=== PATIENT | female | born 1955 | race Caucasian/White ===

== ENCOUNTER 2017-04-21 07:12 | Inpatient (IN) ==
[2017-04-21] MEDS ORDERED: IPRATROPIUM/ALBUTEROL 2.5mg-0.5mg/3ml NEB AEROSOL ONE ×2 (07:30→09:00)
--- NOTE | 2017-04-21 07:40 | Emergency Department Report ---
General Adult HPI - General Chief complaint: Upper Respiratory Infection Stated complaint: Pneumonia Time Seen by Provider: 04/21/17 07:24 Source: patient Mode of arrival: ambulatory Limitations: no limitations - History of Present Illness HPI narrative: 62-year-old female presents the emergency department with a chief complaint of productive cough of yellow phlegm. Patient has a history of COPD has been non- compliant with her medication regimen for quite some time. Patient also notes a dull generalized chest discomfort with cough only. No radiation. Pain is moderate when present. Patient states that her symptoms have been slowly exacerbating over the past several days. She does not note any exacerbating or remitting factors other than cough. Patient states this is similar to when she has had pneumonia in the past. She was at home when her symptoms began. Symptoms are gradual progression in nature since onset. No other complaints or associated symptoms. - Related Data Home Medications Medication Instructions Recorded Confirmed Dicyclomine HCl 20 mg PO TID #0 04/26/14 04/21/17 Promethazine HCl 25 mg PO TID PRN #0 04/26/14 04/21/17 Nitroglycerin 1 tab SL Q5H PRN #0 07/04/14 04/21/17 Lisinopril 10 mg PO DAILY #0 04/02/15 04/21/17 Omeprazole 40 mg PO DAILY #0 09/18/15 04/21/17 Tiotropium [place] [Spiriva 1 puff INH DAILY #0 09/18/15 04/21/17 Respimat] Verapamil HCl [Verapamil ER] 180 mg PO DAILY #0 09/18/15 04/21/17 Cyanocobalamin (Vitamin B-12) 2,500 mcg PO DAILY 04/21/17 04/21/17 [Vitamin B12] Isosorbide Mononitrate ER [Imdur] 30 mg PO DAILY 04/21/17 04/21/17 Levothyroxine Tab [Synthroid] 100 mcg PO DAILY 04/21/17 04/21/17 Nitroglycerin Patch [Nitro-Dur 0.2 1 patch TD DAILY 04/21/17 04/21/17 mg/Hr] Previous Rx's Medication Instructions Recorded Albuterol Neb (0.083%) [Proventil 2.5 mg AEROSOL QID #56 vial 04/22/17 Neb (0.083%)] Benzonatate [Tessalon Perles] 200 mg PO TID #20 cap 04/22/17 Guaifenesin LA [Mucinex LA] 600 mg PO BID PRN #20 04/22/17 Hydrocodone/APAP 7.5/325 [[place] 1 tab PO Q4H PRN #20 04/22/17 7.5/325] Levofloxacin [Levaquin] 750 mg PO ACB #5 04/22/17 PredniSONE [Deltasone] 40 mg PO WB #10 04/22/17 Allergies Allergy/AdvReac Type Severity Reaction Status Date / Time azithromycin Allergy Unknown RASH Verified 04/21/17 09:42 Iodinated Contrast Media - Allergy Unknown Verified 04/21/17 09:42 Oral and Penicillins Allergy Unknown ANAPHYLACTIC Verified 04/21/17 09:42 SHOCK ketorolac AdvReac Unknown VOMITING Verified 04/21/17 09:42 Review of Systems Constitutional: Denies: fever, weakness Eyes: Denies: eye pain, vision change ENT: Denies: ear pain, throat pain, dental pain Cardiovascular: Denies: chest pain, dyspnea on exertion Respiratory: Reports: cough, dyspnea, wheezes. Denies: hemoptysis Gastrointestinal: Reports: abdominal pain, nausea, vomiting, diarrhea Genitourinary: Denies: urgency, dysuria Musculoskeletal: Denies: back pain, arthralgia Integumentary: Denies: erythema, rash Neurological: Denies: headache, numbness Psychiatric: Denies: anxiety, depression Endocrine: Denies: fatigue, heat or cold intolerance Hematological/Lymphatic: Denies: easy bleeding, easy bruising Allergic/Immunologic: Denies: facial swelling, urticaria PFSH Patient Stated Medical History Migraine Yes Syncope Yes Angina Yes Cardiac Arrhythmia Yes Hypotension Yes Asthma Yes Bronchitis Yes Chronic Obstructive Pulmonary Yes Disease (COPD) Pneumonia Yes Gastroesophageal Reflux Yes Disease Shingles Yes: LEFT CHEST Depression Yes Ovarian Cysts Yes Post Menopausal Yes Surgical History: Cardiac catheterization, hysterectomy, carpal tunnel release, facial surgery, tonsillectomy, lumpectomy, endometriosis surgery 3. Family History: Cancer and coronary artery disease - Social History Smoking status: Current every day smoker Packs per day: 1 Substance use type: former substance user, crack/cocaine Alcohol intake frequency: does not drink Physical Exam - Limitations Limitations: no limitations - General General appearance: alert, in no apparent distress - Normal Exams: Head:: Normocephalic without trauma Eyes:: Pupils are PERRLA w/ EOMI ENMT:: No facial trauma, nasal exudates, pharyngeal erythema, or exudates are noted Dental: No fractured, loose, or missing teeth noted Neck:: Full range of motion, without adenopathy, JVD, bruits or thyromegaly Chest/Respirations:: with good airflow, and symmetry bilaterally (bilateral end expiratory wheezes.) Cardiovascular:: Regular rate and rhythm, without murmur or gallop, Pulses 2+ all extremities, capillary refill, <2 seconds all extremities Abdomen:: Bowel sounds positive, soft, non-tender, non-distended, no hepatosplenomegaly, masses or bruits noted Lymphatic:: No lymphadenopathy, or lymphedema noted Musculoskeletal:: No tenderness, or deformity noted, good range of motion, all extremities Integumentary:: No rashes, hives, or bruising noted, hair and nails, without abnormality Neurological:: Patient is alert, and oriented, cranial nerves, motor/sensory/ cerebellar, exams w/o gross deficits, to observation Psychiatric:: Patient exhibits Course Vital Signs Temperature 98.1 F 04/21/17 07:15 Pulse Rate 92 04/21/17 07:15 Respiratory Rate 32 H 04/21/17 07:15 Blood Pressure 125/81 04/21/17 07:15 Pulse Oximetry 93 04/21/17 07:15 Temperature 97.5 F 04/22/17 15:43 Pulse Rate 84 04/22/17 15:43 Respiratory Rate 24 04/22/17 16:43 Blood Pressure 106/68 04/22/17 15:43 Pulse Oximetry 96 04/22/17 16:43 Medical Decision Making - [facility] Narrative Medical decision making narrative: Patient's blood pressure of 88/51 is not a correct reading. Patient was moving during the reading with a coughing fit. All other pressures were > 90 systolic. Patient does not qualify for 30 mL/kg of normal saline hydration as this blood pressure was an erroneous value and should not be interpreted as a correct value. She was not hypotensive and did not have a lactic acid greater than 4. Patient does not meet criteria for 30 mL/kg of normal saline hydration. Patient is given gentle IV hydration. She is given DuoNeb nebulized treatments in the emergency department with improvement of symptoms. She is given Solu-medrol 125 mg IV 1. She is started on Levaquin 750 mg IV times one at 0950 as sepsis was considered at this time. Patient is admitted to the service of the hospitalist in improved condition. Patient is in agreement with the current plan of management. Accepting physician is Dr. Graham who is in agreement with the current plan of management as well. No further orders. Sepsis was considered at 0950 and antibiotic therapy was ordered at this time. - Differential Diagnosis COPD exacerbation, pneumonia, viral syndrome, acute bronchitis - Lab Data Result diagrams: 04/22/17 04:27 04/22/17 04:27 Lab Results 04/21/17 04/21/17 04/21/17 Range/Units 07:45 07:45 08:24 WBC 12.9 H (4.5-11.0) T/MM3 RBC 4.15 (4.00-5.20) M/MM3 Hgb 12.7 (12-16) GM/DL Hct 38.9 (36-46) % MCV 93.7 (80-100) UM3 MCH 30.6 (26-34) UUG MCHC 32.6 (31-37) GM/DL RDW Std Deviation 47.1 (36.9-50.2) FL Plt Count 239 (130-400) T/MM3 MPV 10.3 (9.4-12.4) UM3 Immature Gran % (Auto) 0.2 (0.0-0.5) % Neut % (Auto) 48.5 (33-66) % Lymph % (Auto) 44.8 (23-45) % [place] % (Auto) 5.5 (0-9.0) % Eos % (Auto) 0.5 (0-4) % Baso % (Auto) 0.5 (0-2) % Neut # 6.3 (1.8-7.7) T/MM3 Lymph # 5.8 H (1-4.8) T/MM3 [place] # 0.7 (0-0.8) T/MM3 Eos # 0.1 (0-0.5) T/MM3 Baso # 0.1 (0-0.2) T/MM3 Abs Immat Gran (auto) 0.02 (0.00-0.03) T/MM3 Turbidity 20 (0-20) Sodium 140 (134-144) MEQ/L Potassium 4.2 (3.6-5) MEQ/L Chloride 106 (98-107) MEQ/L Carbon Dioxide 24 (22-30) MEQ/L Anion Gap 10 (5-15) MEQ/L BUN 11.0 (7-17) MG/DL Creatinine 0.7 (0.7-1.2) MG/DL GFR Calculation 85 BUN/Creatinine Ratio 16 (6-26) RATIO Glucose 126 H (65-110) MG/DL Calculated Osmolality 270 (261-280) MOSM/KG Calcium 8.9 (8.4-10.2) MG/DL Total Bilirubin 0.50 (0.20-1.30) MG/DL Icterus Index 2 (0-7) AST 12 L (14-36) U/L ALT 31 (9-52) U/L Alkaline Phosphatase 83 (38-126) U/L Troponin I < 0.012 (0-0.12) ng/ml Total Protein 6.9 (6.3-8.2) G/DL Albumin 3.6 (3.5-5.0) G/DL Globulin 3.3 (2.4-3.6) G/DL Albumin/Globulin Ratio 1.1 (1.1-2.2) RATIO Plasma Lactate 0.6 (0.6-2.2) MMOL/L Procalcitonin NG/ML Specimen Hemolysis 15 (0-25) 06/08/17 Range/Units 08:30 WBC (4.5-11.0) T/MM3 RBC (4.00-5.20) M/MM3 Hgb (12-16) GM/DL Hct (36-46) % MCV (80-100) UM3 MCH (26-34) UUG MCHC (31-37) GM/DL RDW Std Deviation (36.9-50.2) FL Plt Count (130-400) T/MM3 MPV (9.4-12.4) UM3 Immature Gran % (Auto) (0.0-0.5) % Neut % (Auto) (33-66) % Lymph % (Auto) (23-45) % [place] % (Auto) (0-9.0) % Eos % (Auto) (0-4) % Baso % (Auto) (0-2) % Neut # (1.8-7.7) T/MM3 Lymph # (1-4.8) T/MM3 [place] # (0-0.8) T/MM3 Eos # (0-0.5) T/MM3 Baso # (0-0.2) T/MM3 Abs Immat Gran (auto) (0.00-0.03) T/MM3 Turbidity (0-20) Sodium (134-144) MEQ/L Potassium (3.6-5) MEQ/L Chloride (98-107) MEQ/L Carbon Dioxide (22-30) MEQ/L Anion Gap (5-15) MEQ/L BUN (7-17) MG/DL Creatinine (0.7-1.2) MG/DL GFR Calculation BUN/Creatinine Ratio (6-26) RATIO Glucose (65-110) MG/DL Calculated Osmolality (261-280) MOSM/KG Calcium (8.4-10.2) MG/DL Total Bilirubin (0.20-1.30) MG/DL Icterus Index (0-7) AST (14-36) U/L ALT (9-52) U/L Alkaline Phosphatase (38-126) U/L Troponin I (0-0.12) ng/ml Total Protein (6.3-8.2) G/DL Albumin (3.5-5.0) G/DL Globulin (2.4-3.6) G/DL Albumin/Globulin Ratio (1.1-2.2) RATIO Plasma Lactate (0.6-2.2) MMOL/L Procalcitonin < 0.05 NG/ML Specimen Hemolysis (0-25) - Radiology Data CXR: LLL Infiltrate otherwise no acute processes. - EKG Data EKG #1 EKG results narrative: Sinus rhythm. T wave abnormality in V3-V6. No STEMI. EKG is similar to March. 79 bpm. Disposition Clinical Impression: Acute exacerbation of chronic obstructive airways disease Disposition: To [facility] Condition: Stable Time of Disposition: 09:50 (Admit. Dr. Graham.) - Seen By: physician
--- NOTE | 2017-04-21 09:12 | XRay Report ---
INDICATION: Cough PROCEDURE: CHEST 2-VIEWS UPRIGHT (PA & LAT) Encounter: Initial Comparison: April 05, 2015 Findings: Faint airspace opacity in the left lower lobe. The lungs are otherwise stable. Chronic increased basilar markings. There is no pleural effusion or pneumothorax. The heart size, pulmonary vascularity and mediastinal contours are unchanged. Calcified hilar granulomas. IMPRESSION: Subtle left posterior lower lobe infiltrate, some of which may be due to chronic scarring although an acute early pneumonia cannot be entirely excluded. Recommend clinical and laboratory correlation. .
[2017-04-21] MEDS ORDERED: METHYLPREDNISOLONE SOD SUCC 125mg/2ml INJECTION IVP ONE (09:49)
[2017-04-21] MEDS ORDERED: LEVOFLOXACIN PREMIX 750 MG/150 ML BAG IV ONE (09:50)
[2017-04-21] MEDS ORDERED: NS 1,000 ML IV ONE (09:50)
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
[2017-04-21] MEDS ORDERED: PROMETHAZINE 25 MG PO PRN (12:38)
[2017-04-21] MEDS ORDERED: NICOTINE 21 MG PATCH TD PRN (12:41)
[2017-04-21] MEDS: ACETAMINOPHEN 325 MG TABLET PO PRN (15:04)
[2017-04-21] MEDS: IPRATROPIUM/ALBUTEROL 2.5mg-0.5mg/3ml NEB IH SCH ×2 (15:21→20:52)
[2017-04-21] MEDS: GUAIFENESIN LA 600 MG TABLET PO PRN (16:38)
[2017-04-21] MEDS: ONDANSETRON 4 MG/2 ML INJECTION IVP PRN (16:38)
[2017-04-21] MEDS ORDERED: IPRATROPIUM/ALBUTEROL 2.5mg-0.5mg/3ml NEB IH PRN (17:20)
[2017-04-21] MEDS ORDERED: PredniSONE 20 MG TABLET PO ONE (17:20)
[2017-04-21] MEDS ORDERED: IBUPROFEN 600 MG TABLET PO PRN (17:35)
[2017-04-21] MEDS: DICYCLOMINE 20 MG PO SCH (18:29)
[2017-04-21] MEDS: CYCLOBENZAPRINE 10 MG TABLET PO PRN (18:29)
[2017-04-21] MEDS: HYDROCODONE/APAP 7.5 MG/325 MG TABLET PO PRN (20:28)
[2017-04-21] MEDS ORDERED: NITROGLYCERIN PATCH REMOVAL TD SCH (21:00)
[2017-04-21] MEDS ORDERED: FAMOTIDINE 40 MG TABLET PO PRN (22:25)
[2017-04-22] MEDS: HYDROCODONE/APAP 7.5 MG/325 MG TABLET PO PRN ×4 (01:23→15:50)
[2017-04-22] MEDS ORDERED: LEVOTHYROXINE 100 MCG PO SCH (06:30)
[2017-04-22] MEDS ORDERED: ISOSORBIDE MONONITRATE 30 MG PO SCH (06:30)
[2017-04-22] MEDS ORDERED: LEVOFLOXACIN 750 MG TABLET PO SCH (06:30)
[2017-04-22] MEDS ORDERED: OMEPRAZOLE 20 MG CAPSULE PO SCH (06:30)
[2017-04-22] MEDS ORDERED: FAMOTIDINE 40 MG TABLET PO ONE (07:15)
[2017-04-22] MEDS ORDERED: PredniSONE 20 MG TABLET PO SCH (08:00)
[2017-04-22] MEDS: IPRATROPIUM/ALBUTEROL 2.5mg-0.5mg/3ml NEB IH SCH ×2 (08:11→16:46)
[2017-04-22] MEDS ORDERED: FAMOTIDINE 40 MG TABLET PO PRN (08:11)
[2017-04-22] MEDS: CYCLOBENZAPRINE 10 MG TABLET PO PRN (08:20)
[2017-04-22] MEDS: DICYCLOMINE 20 MG PO SCH ×3 (08:21→17:48)
[2017-04-22] MEDS ORDERED: NITROGLYCERIN 0.2 MG/HR PATCH TD SCH (09:00)
[2017-04-22] MEDS ORDERED: HANDIHALER ORAL INH SCH (09:00)
[2017-04-22] MEDS ORDERED: CYANOCOBALAMIN 2500 MCG PO SCH (09:00)
[2017-04-22] MEDS ORDERED: LISINOPRIL 10 MG PO SCH (09:00)
[2017-04-22] MEDS ORDERED: TIOTROPIUM ORAL INH SCH (09:00)
[2017-04-22] MEDS ORDERED: VERAPAMIL 180 MG PO SCH (09:00)
[2017-04-22] MEDS ORDERED: NICOTINE PATCH REMOVAL TD SCH (09:00)
[2017-04-22] MEDS ORDERED: POLYETHYL GLYCOL 3350 17gm PACKET PO ONE (12:28)
[2017-04-22] MEDS: ACETAMINOPHEN 325 MG TABLET PO PRN (12:47)
[2017-04-22] MEDS: GUAIFENESIN LA 600 MG TABLET PO PRN (13:46)
[2017-04-22] MEDS: ONDANSETRON 4 MG/2 ML INJECTION IVP PRN (16:19)
--- NOTE | 2017-04-22 17:51 | Progress Note ---
Subjective: Sulema reports her breathing is about 50% better today and that she is less short of breath with activities and yesterday but she continues to cough repetitively with yellow-green sputum production. She was caught going outside to smoke earlier today. She describes nausea with retching when her Hep-Lock is flushed but has been able to eat. She is voiding well and denied fevers but believe she chilled overnight. She describes her hands feeling ice cold and changing colors at times. She continues to have significant pain with cough localizing pain to the left ribs today more than the right. She just complains of chronic back pain. Objective Vital signs: Temp Pulse Resp BP Pulse Ox 97.5 F 84 24 106/68 96 04/22/17 15:43 04/22/17 15:43 04/22/17 16:43 04/22/17 15:43 04/22/17 16:43 EXAM General-NAD, alert HEENT-conjugate gaze, oropharynx clear Lungs-respirations are nonlabored with diminished airflow, breath sounds are slightly coarse Cardiac-regular rhythm, decreased heart tones Abd-soft, nontender, bowel sounds present Ext-without edema Neuro-moving all extremities spontaneously Psych-push of speech, anxious - Height: 1.55 m Weight: 53.6 kg Body Mass Index: 22.3 - Constitutional Present: mild distress, thin Results - Labs CBC & Chem 7: 04/22/17 04:27 04/22/17 04:27 Labs: Respiratory viral panel positive for rhinovirus. Blood cultures 2 negative after 1 day. Assessment and Plan (1) CAP (community acquired pneumonia) Current visit: Yes Status: Acute (2) COPD exacerbation Current visit: Yes Status: Acute (3) Rhinovirus infection Current visit: Yes Status: Acute (4) Anterior chest wall pain Current visit: Yes Status: Acute (5) Tobacco abuse Current visit: Yes Status: Chronic (6) Sepsis Current visit: Yes Status: Acute (7) Chest pain, atypical Current visit: Yes Status: Acute (8) CAD (coronary artery disease) Current visit: Yes Status: Acute (9) Bipolar affective disorder Current visit: Yes Status: Acute (10) PTSD (post-traumatic stress disorder) Current visit: Yes Status: Acute (11) Anxiety and depression Current visit: Yes Status: Acute (12) Constipation by delayed colonic transit Current visit: Yes Status: Acute Assessment and Plan: Respiratory status improving , respiratory isolation initiated for rhinovirus. Continue Levaquin/prednisone for COPD exacerbation. Tessalon Perles initiated for cough control. Repeat chest x-ray in a.m. Sputum culture pending-suspect infiltrate viral in origin. Continue aggressive beta agonist therapy, patient reports need for nebulizer at home-case management advice. Patient complains of constipation-bowel regimen initiated. Tobacco cessation again counseled. Heating pad added for rib/chest wall pain in conjunction with currently available pain medications. Inpatient status due to acute respiratory failure. Nursing provide supplemental history, laboratory data reviewed, chest x-ray ordered. Sepsis Assessment - Evaluation Sepsis screening result: No Definite Risk - Focused Exam Vital Signs Temp Pulse Resp BP Pulse Ox 04/22/17 16:43 24 96 04/22/17 15:43 97.5 F 84 20 106/68 92 04/22/17 12:31 18 94 04/22/17 07:32 24 96 04/22/17 07:24 96.5 F L 68 18 134/85 97 Hospital Course Summary Disclaimer: The visit summary below is not to be considered part of the above Progress Note. Hospital Course: 04/21/17 12:53 Admit to observation status 1. Sepsis secondary to CAP (LLL) - SIRS = tachypnea and leukoctyosis + infection (pneumonia) - Levaquin - given IV in ED. Start PO in am. - Supportive care 2. COPD exacerbation - Solu-Medrol IV was given in ED. Start Prednisone 40 mg tomorrow am. - DuoNeb QID; continue home Spiriva. - Acute hypoxic respiratory failure - Oxygen to maintain sats - Acapella 3. Atypical chest pain - Right chest pain assoc. with cough, onset yesterday - Hx of CAD with stent - continue routine home meds - Assess EKG - Check troponin 4. Tobacco abuse - Pt is trying to cut back - Ask RT to provide cessation information 5. Depression/anxiety/PTSD/Bipolar disorder - Monitor for worsening in psychiatric conditions d/t steroids - Ativan PRN 6. Consult CM - needs to be established with new PCP 04/22/17 17:58 Respiratory status improving , respiratory isolation initiated for rhinovirus. Continue Levaquin/prednisone for COPD exacerbation. Repeat chest x-ray in a.m. Sputum culture pending-suspect infiltrate viral in origin. Continue aggressive beta agonist therapy, patient reports need for nebulizer at home-case management advice. Patient complains of constipation-bowel regimen initiated. Tobacco cessation again counseled. Heating pad added for rib/chest wall pain in conjunction with currently available pain medications. Inpatient status due to respiratory failure.
--- NOTE | 2017-04-22 18:51 | Discharge Summary ---
Discharge Plan - Med Rec/Dispo [facility] Instructions: Cigarette Smoking and Your Health (GEN), How to Stop Smoking (DC) Prescriptions: New Albuterol Neb (0.083%) [Proventil Neb (0.083%)] 2.5 mg AEROSOL QID #56 vial Benzonatate [Tessalon Perles] 200 mg PO TID #20 cap Guaifenesin LA [Mucinex LA] 600 mg PO BID PRN #20 PRN Reason: Cough /Congestion Levofloxacin [Levaquin] 750 mg PO ACB #5 PredniSONE [Deltasone] 40 mg PO WB #10 Hydrocodone/APAP 7.5/325 [[place] 7.5/325] 1 tab PO Q4H PRN #20 PRN Reason: Pain Continue Promethazine HCl 25 mg PO TID PRN #0 PRN Reason: PRN ORDERS Nitroglycerin 1 tab SL Q5H PRN #0 PRN Reason: ANGINA Levothyroxine Tab [Synthroid] 100 mcg PO DAILY Nitroglycerin Patch [Nitro-Dur 0.2 mg/Hr] 1 patch TD DAILY Isosorbide Mononitrate ER [Imdur] 30 mg PO DAILY Dicyclomine HCl 20 mg PO TID #0 Lisinopril 10 mg PO DAILY #0 Omeprazole 40 mg PO DAILY #0 Verapamil HCl [Verapamil ER] 180 mg PO DAILY #0 Tiotropium [place] [Spiriva Respimat] 1 puff INH DAILY #0 Cyanocobalamin (Vitamin B-12) [Vitamin B12] 2,500 mcg PO DAILY - Disposition 01 Discharged Home, Self-Care
[2017-04-22] MEDS ORDERED: BENZONATATE 200 MG CAPSULE PO SCH (21:00)
[2017-04-22] MEDS ORDERED: SENNOSIDES 8.6 MG TABLET PO SCH (21:00)
--- NOTE | 2017-04-22 23:44 | Discharge Summary ---
Discharge Information Date of admission: 04/21/17 11:18 Anticipated date of discharge: 04/22/17 Attending Physician: Romelia Graham MD Primary care physician: MD JONATHON Cano Consults: 04/21/17 12:50 Case Management Consult [CONS] Routine Reason For Exam: - Discharge Diagnosis (1) CAP (community acquired pneumonia) Status: Acute (2) COPD exacerbation Status: Acute (3) Rhinovirus infection Status: Acute (4) Anterior chest wall pain Status: Acute (5) Tobacco abuse Status: Chronic (6) Sepsis Qualifiers: Sepsis type: sepsis due to unspecified organism Qualified Code(s): A41.9 - Sepsis, unspecified organism Status: Acute (7) CAD (coronary artery disease) Qualifiers: Coronary Disease-Associated Artery/Lesion type: [place] artery [place] vs. transplanted heart: [place] heart Associated angina: with stable angina Qualified Code(s): I25.118 - Atherosclerotic heart disease of [place] coronary artery with other forms of angina pectoris Status: Chronic (8) Bipolar affective disorder Qualifiers: Active/Remission status: in partial remission Most recent bipolar episode type: most recent episode unspecified type Qualified Code(s): F31.70 - Bipolar disorder, currently in remission, most recent episode unspecified Status: Chronic (9) PTSD (post-traumatic stress disorder) Status: Chronic (10) Anxiety and depression Status: Chronic (11) Constipation by delayed colonic transit Status: Chronic - Laboratory Labs: 04/22/17 04:27 04/22/17 04:27 White count on admission 12.9 with unremarkable electrolytes/liver enzymes. Lactic acid 1.4 and procalcitonin nondetectable on admission - Microbiology Respiratory viral panel positive for rhinovirus. Blood cultures 2 negative at discharge. - Radiology Radiology: Chest x-ray admission demonstrated subtle left lower lobe infiltrate suggestive of early pneumonia although scarring could not be excluded. History of Present Illness HPI: Sulema Suarez is a 62 y/o woman who presented to the ED for further evaluation of shortness of breath, cough, fever/chills, right sided chest pain, nausea and vomiting. She doesn't speak much - she answers questions in a whisper and usually a 1-word response. She has also felt weak and dizzy. She hasn't been able to eat - no appetite and because of vomiting. She complains of a dry throat. She denies rashes, leg swelling, diarrhea or constipation, abdominal pain, or changes with urination. She has been cutting down on smoking and is now smoking less than a pack a day. She became hypoxic in the ED with room air sat of 80% - she was started on oxygen. SIRS criteria were positive for leukocytosis (WBC 12.9) and tachypnea (RR 32). Lactate and PCT were unremarkable. She was started on Levaquin, Solu-Medrol, and was given a DuoNeb treatment with minimal improvement. She was subsequently admitted to observation status under the hospitalist service. Hospital Course Hospital course: 04/21/17 12:53 Admit to observation status 1. Sepsis secondary to CAP (LLL) - SIRS = tachypnea and leukoctyosis + infection (pneumonia) - Levaquin - given IV in ED. Start PO in am. - Supportive care 2. COPD exacerbation - Solu-Medrol IV was given in ED. Start Prednisone 40 mg tomorrow am. - DuoNeb QID; continue home Spiriva. - Acute hypoxic respiratory failure - Oxygen to maintain sats - Acapella 3. Atypical chest pain - Right chest pain assoc. with cough, onset yesterday - Hx of CAD with stent - continue routine home meds - Assess EKG - Check troponin 4. Tobacco abuse - Pt is trying to cut back - Ask RT to provide cessation information 5. Depression/anxiety/PTSD/Bipolar disorder - Monitor for worsening in psychiatric conditions d/t steroids - Ativan PRN 6. Consult CM - needs to be established with new PCP 04/22/17 17:58 Respiratory status improving , respiratory isolation initiated for rhinovirus. Continue Levaquin/prednisone for COPD exacerbation. Repeat chest x-ray in a.m. Sputum culture pending-suspect infiltrate viral in origin. Continue aggressive beta agonist therapy, patient reports need for nebulizer at home-case management advice. Patient complains of constipation-bowel regimen initiated. Tobacco cessation again counseled. Heating pad added for rib/chest wall pain in conjunction with currently available pain medications. Inpatient status due to respiratory failure. 04/22/17 2300 Early evening patient was again caught trying to leave the hospital to smoke. Nursing advised her that it was a nonsmoking hospital; patient subsequently advised nursing that she was going to leave the hospital AGAINST MEDICAL ADVICE. She did wait for discharge medications to be prepared so she could discharge with steroids and nebulized albuterol. Case management had previously coordinated a home nebulizer for her. She will require outpatient follow-up but left the hospital before I could discuss discharge plans with her. Discharge Plan - Med Rec/Dispo [facility] Instructions: How to Stop Smoking (DC), Cigarette Smoking and Your Health (GEN) Prescriptions: New Albuterol Neb (0.083%) [Proventil Neb (0.083%)] 2.5 mg AEROSOL QID #56 vial Benzonatate [Tessalon Perles] 200 mg PO TID #20 cap Guaifenesin LA [Mucinex LA] 600 mg PO BID PRN #20 PRN Reason: Cough /Congestion Levofloxacin [Levaquin] 750 mg PO ACB #5 PredniSONE [Deltasone] 40 mg PO WB #10 Hydrocodone/APAP 7.5/325 [[place] 7.5/325] 1 tab PO Q4H PRN #20 PRN Reason: Pain Continue Promethazine HCl 25 mg PO TID PRN #0 PRN Reason: PRN ORDERS Nitroglycerin 1 tab SL Q5H PRN #0 PRN Reason: ANGINA Levothyroxine Tab [Synthroid] 100 mcg PO DAILY Nitroglycerin Patch [Nitro-Dur 0.2 mg/Hr] 1 patch TD DAILY Isosorbide Mononitrate ER [Imdur] 30 mg PO DAILY Dicyclomine HCl 20 mg PO TID #0 Lisinopril 10 mg PO DAILY #0 Omeprazole 40 mg PO DAILY #0 Verapamil HCl [Verapamil ER] 180 mg PO DAILY #0 Tiotropium [place] [Spiriva Respimat] 1 puff INH DAILY #0 Cyanocobalamin (Vitamin B-12) [Vitamin B12] 2,500 mcg PO DAILY - Disposition 07 Against Medical Advice
[2017-04-23] MEDS ORDERED: POLYETHYL GLYCOL 3350 17gm PACKET PO ONE (12:28)
== END 2017-04-22 19:40 | disposition left against medical advice (07) | DRG 871 ==
LOC: MED 07:12 → ED 07:12 → OBSVTOIN 11:18 → MED 11:50
PROVIDERS: ADMIT Internal Medicine; ATTEND Internal Medicine

== ENCOUNTER 2018-03-22 14:22 | Inpatient (IN) ==
[2018-03-22] MEDS ORDERED: SALINE FLUSH 10ml SYRINGE IVF PRN (14:45)
--- NOTE | 2018-03-22 14:48 | Emergency Department Report ---
General Adult HPI - General Chief complaint: Fever Stated complaint: Dyspnea Time Seen by Provider: 03/22/18 14:45 Source: patient, EMS Mode of arrival: EMS Limitations: no limitations - History of Present Illness HPI narrative: 63-year-old female presents to the emergency department with the chief complaint of cough and shortness of breath. Patient states that her symptoms began earlier today at 1300. Patient notes a cough that is been gradually increasing throughout the day in harshness and is now productive of a green and yellow sputum. She was seen and evaluated in the emergency department one day ago for elevated blood pressure and was at her baseline health status at that time. She had no complaints. She only presented to the emergency department at that time due to the fact that she was sent by [facility] for further evaluation of her elevated blood pressure and "had no choice but to come." She states that she "felt better than I have in long time yesterday and did not want to come to the ED as I did not have any issues that needed attention." She also stated yesterday, "I am wasting your time by being here and I do not want or need any testing because I only came because [facility] insisted on it to have a blood pressure check." She notes discomfort in her chest that is only present with coughing. It is sharp. It is moderate in nature when present. She was at [facility] when her symptoms began. Symptoms have been persistent in nature since onset. No other complaints or associated symptoms at this time. - Related Data Home Medications Medication Instructions Recorded Confirmed Isosorbide Mononitrate ER [Imdur] 30 mg PO BID 04/21/17 03/22/18 Levothyroxine Tab [Synthroid] 100 mcg PO DAILY 04/21/17 03/22/18 Nitroglycerin Patch [Nitro-Dur 0.2 1 patch TD DAILY 04/21/17 03/22/18 mg/Hr] Simvastatin [Zocor] 40 mg PO HS 06/26/17 03/22/18 Bisoprolol/Hctz 10/6.25 [Ziac] 1 tab PO DAILY 03/04/18 03/22/18 FLUoxetine [Prozac] 20 mg PO HS 03/04/18 03/22/18 Lisinopril [Prinivil] 10 mg PO DAILY 03/04/18 03/22/18 Omeprazole 40 mg PO BID 03/04/18 03/22/18 Albuterol HFA Inhaler [Ventolin 2 puff ORAL INH Q6HR PRN 03/21/18 03/22/18 Hfa 90 mcg/actuation] Clopidogrel [Plavix] 75 mg PO DAILY 03/21/18 03/22/18 Dicyclomine [Bentyl] 20 mg PO QID 03/21/18 03/22/18 Doxycycline [Vibramycin] 100 mg PO BID 03/21/18 03/22/18 HydrOXYzine [Atarax] 10 mg PO Q8H PRN 03/21/18 03/22/18 Nitroglycerin [Nitroglycerin] 0.4 mg PO Q5MIN3 PRN 03/21/18 03/22/18 Albuterol Sulfate 2.5 mg AEROSOL TID 03/22/18 03/22/18 Allergies Allergy/AdvReac Type Severity Reaction Status Date / Time azithromycin Allergy Unknown RASH Verified 03/21/18 10:45 Iodinated Contrast- Oral and Allergy Unknown Verified 03/21/18 10:45 IV Dye Penicillins Allergy Unknown ANAPHYLACTIC Verified 03/21/18 10:45 SHOCK ketorolac AdvReac Unknown VOMITING Verified 03/21/18 10:45 Review of Systems Constitutional: Reports: fever (subjective), chills Eyes: Denies: eye pain, vision change ENT: Denies: ear pain, throat pain Cardiovascular: Reports: chest pain (only present with coughing). Denies: palpitations Respiratory: Reports: cough, dyspnea, wheezes. Denies: hemoptysis Gastrointestinal: Denies: abdominal pain, nausea, vomiting, diarrhea Genitourinary: Denies: urgency, dysuria Musculoskeletal: Denies: back pain, arthralgia Integumentary: Denies: erythema, rash Neurological: Denies: headache, numbness, paresthesias Psychiatric: Reports: anxiety. Denies: depression, suicidal thoughts, homicidal thoughts Endocrine: Denies: polydipsia, polyuria Hematological/Lymphatic: Denies: easy bruising, lymphadenopathy Allergic/Immunologic: Denies: facial swelling, urticaria PFSH Patient Stated Medical History Cerebrovascular Accident Yes Migraine Yes Syncope Yes Dental Problems Yes Angina Yes Cardiac Arrhythmia Yes Hypertension Yes Hypotension Yes Asthma Yes Bronchitis Yes Chronic Obstructive Pulmonary Yes Disease (COPD) Pneumonia Yes Gastroesophageal Reflux Yes Disease Anemia Yes: not sure what kind Shingles Yes: LEFT CHEST Bipolar Disorder Yes Depression Yes Substance Use Disorder Yes: LORTAB, METH Ovarian Cysts Yes Post Menopausal Yes Surgical History: Cardiac catheterization, hysterectomy, carpal tunnel release, facial surgery, tonsillectomy, lumpectomy, endometriosis surgery 3. Family History: Reviewed and Noncontributory. - Social History Smoking status: Current every day smoker Substance use type: methamphetamine Alcohol intake frequency: does not drink Current occupational status: retired Physical Exam - Limitations Limitations: no limitations - General General appearance: alert, in no apparent distress, anxious - Normal Exams: Head:: Normocephalic without trauma Eyes:: Pupils are PERRLA w/ EOMI, No scleral icterus, irritation, or foreign bodies noted ENMT:: No facial trauma, nasal exudates, pharyngeal erythema, or exudates are noted Dental: No fractured, loose, or missing teeth noted Neck:: Full range of motion, without adenopathy, JVD, bruits or thyromegaly Chest/Respirations:: with good airflow (Bilateral and expiratory wheezes.), and symmetry bilaterally Cardiovascular:: Regular rate and rhythm, without murmur or gallop, Pulses 2+ all extremities, capillary refill, <2 seconds all extremities Abdomen:: Bowel sounds positive, soft, non-tender, non-distended, no hepatosplenomegaly, masses or bruits noted Lymphatic:: No lymphadenopathy, or lymphedema noted Musculoskeletal:: No tenderness, or deformity noted, good range of motion, all extremities Integumentary:: No rashes, hives, or bruising noted, hair and nails, without abnormality Neurological:: Patient is alert, and oriented, cranial nerves, motor/sensory/ cerebellar, exams w/o gross deficits, to observation Course Vital Signs Temperature 102.3 F H 03/22/18 14:20 Pulse Rate 72 03/22/18 14:20 Respiratory Rate 28 H 03/22/18 14:20 Blood Pressure 144/91 H 03/22/18 14:20 Pulse Oximetry 92 03/22/18 14:20 Temperature 96.4 F L 03/23/18 08:58 Pulse Rate 75 03/23/18 09:00 Respiratory Rate 20 03/23/18 11:03 Blood Pressure 135/74 03/23/18 08:58 Pulse Oximetry 93 03/23/18 11:03 Medical Decision Making - [facility] Narrative Medical decision making narrative: Labs/imaging were discussed in detail with the patient and questions are answered. She is given 500 mL of normal saline intravenously. She was given Solu-Medrol 125 mg IV 1 by EMS prior to arrival to the emergency department. She is given 1 g of acetaminophen orally. Patient was also given 2 DuoNeb treatments in the emergency department with improvement of symptoms. She was given Levaquin intravenously after blood cultures and lactic acid are obtained for potential right sided infiltrate on her chest x-ray. Patient was discussed with the hospitalist Dr. Ferguson and will be admitted to his service in improved condition for further evaluation and treatment as she meets sepsis criteria with the right-sided pneumonia on her chest x-ray. Dr. Ferguson agrees to accept the patient to his service. No further orders as he is in agreement with the current plan of management. EKG was noted to have aftab changes from prior ekg and this was reviewed with the patient's boat person Dr. Rachel who will see the patient in consultation with no further orders at this time. Levaquin 750 mg iv x 1 was ordered at 1536 when sepsis was considered. Patient was never hypotensive in the ED and her lactate was < 4.0. - Differential Diagnosis pneumonia, COPD, UTI, metabolic disorder - Lab Data Result diagrams: 03/23/18 03:23 03/23/18 03:23 Lab Results 03/22/18 03/22/18 03/22/18 Range/Units 14:42 14:42 14:55 WBC 13.0 H (4.5-11.0) T/MM3 RBC 4.32 (4.00-5.20) M/MM3 Hgb 12.3 (12-16) GM/DL Hct 38.0 (36-46) % MCV 88.0 (80-100) UM3 MCH 28.5 (26-34) UUG MCHC 32.4 (31-37) GM/DL RDW Std Deviation 56.5 H (36.9-50.2) FL Plt Count 322 (130-400) T/MM3 MPV 10.7 (9.4-12.4) UM3 Immature Gran % (Auto) 0.2 (0.0-0.5) % Neut % (Auto) 44.0 (33-66) % Lymph % (Auto) 46.0 H (23-45) % [place] % (Auto) 5.3 (0-9.0) % Eos % (Auto) 3.9 (0-4) % Baso % (Auto) 0.6 (0-2) % Neut # (Auto) 5.7 (1.8-7.7) T/MM3 Lymph # (Auto) 6.0 H (1-4.8) T/MM3 [place] # (Auto) 0.7 (0-0.8) T/MM3 Eos # (Auto) 0.5 (0-0.5) T/MM3 Baso # (Auto) 0.1 (0-0.2) T/MM3 Abs Immat Gran (auto) 0.03 (0.00-0.03) T/MM3 Turbidity < 20 (0-20) Sodium 142 (134-144) MEQ/L Potassium 4.5 (3.6-5) MEQ/L Chloride 105 (98-107) MEQ/L Carbon Dioxide 27 (22-30) MEQ/L Anion Gap 10 (5-15) meq/L BUN 20.0 H (7-17) MG/DL Creatinine 0.9 (0.7-1.2) mg/dL GFR Calculation 64 BUN/Creatinine Ratio 22 (6-26) RATIO Glucose 144 H (65-110) MG/DL Calculated Osmolality 279 (261-280) MOSM/KG Calcium 9.1 (8.4-10.2) MG/DL Total Bilirubin < 0.10 L (0.20-1.30) MG/DL Icterus Index < 2 (0-7) AST 15 (14-36) U/L ALT 13 (1-35) U/L Alkaline Phosphatase 66 (38-126) U/L Troponin I < 0.012 (0-0.12) ng/ml Total Protein 6.7 (6.3-8.2) g/dL Albumin 3.7 (3.5-5.0) g/dL Globulin 3.0 (2.4-3.6) G/DL Albumin/Globulin Ratio 1.2 (1.1-2.2) RATIO Plasma Lactate 1.0 (0.6-2.2) MMOL/L Procalcitonin < 0.05 NG/ML Specimen Hemolysis < 15 (0-25) - Radiology Data CXR: RLL Pneumonia otherwise no acute processes. - EKG Data EKG #1 EKG results narrative: Sinus Rhythm. 69 bpm. NO STEMI. Disposition Clinical Impression: Community acquired pneumonia Qualifiers: Laterality: right Lung location: unspecified part of lung Qualified Code(s): J18.9 - Pneumonia, unspecified organism Disposition: 02 To [facility] Condition: Improved Time of Disposition: 15:55 (Admit. Dr. Ferguson. ) - Seen By: physician
[2018-03-22] MEDS ORDERED: ALBUTEROL/IPRATROPIUM 2.5mg-0.5mg/3ml NEB AEROSOL ONE (14:53)
[2018-03-22] MEDS ORDERED: ACETAMINOPHEN 500 MG TABLET PO SCH (15:00)
--- NOTE | 2018-03-22 15:36 | XRay Report ---
Indication: cough PROCEDURE: XR chest 1V: Encounter: Initial Comparison: March 10, 2018 Findings: New airspace consolidation in the infrahilar region, possibly within the right middle lobe. Left lung is clear. Right upper lobe is clear. No pneumothorax or pleural effusion. Calcified mediastinal lymph nodes. Heart size and mediastinal contours are stable. Pulmonary vascularity is normal. Impression: New airspace disease in the right middle lobe probably representing pneumonia. .
[2018-03-22] MEDS: LEVOFLOXACIN PB 750 MG/150 ML BAG IV SCH (15:47)
--- NOTE | 2018-03-22 17:38 | History & Physical Report ---
History of Present Illness Date: 03/22/18 Chief complaint: SOA, cough HPI: Sulema Suarez is a 63-year-old female with a history of COPD. She is undergoing treatment for drug abuse at [facility], and recently has had some health problems. She reports being started on doxycycline 3-4 days ago by [facility] APRN, [facility]. Since then, she's developed red rash to her extremities and to her chest. On 03/21/18, her blood pressure was elevated and she was seen and released in the emergency department. That evening, she also noted a knot and pain under her right ribs. Around 13:00 on 03/22/18, she began feeling much more poorly with subjective fever and chills, productive cough with yellow sputum, difficulty breathing, chest tightness in the middle of her chest, posttussive emesis, and weakness. She returned to the emergency department and was diagnosed with a right-sided pneumonia. In addition, she was febrile with a temperature of 102.3 and to get neck with a respiratory rate of 28-40. She is able to maintain saturations on room air. Lactic acid was negative at 1.0. Procalcitonin was unremarkable. She had a leukocytosis with a white count of 13, 000. Troponin was negative, but EKG showed T-wave inversions and Dr. Rachel recommended cardiac evaluation. She was subsequently admitted under the hospitalist service. Review of Systems All systems PM: 10-point ROS was reviewed, no additional remarkable complaints except - Constitutional Constitutional: Present: as per HPI - EENMT Eyes: Absent: change in vision Mouth/Throat: Absent: sore throat, changes in swallowing - Cardiovascular Cardiovascular: Present: as per HPI Vascular: Absent: pedal edema, unilateral swelling - Respiratory Respiratory: Present: as per HPI - Gastrointestinal Gastrointestinal: Present: as per HPI - Genitourinary Genitourinary: Absent: dysuria - Musculoskeletal Musculoskeletal: Present: muscle weakness - Integumentary/Breasts Integumentary: Present: as per HPI - Neurological Neurological: Present: weakness. Absent: dizziness, focal weakness - Psychiatric Psychiatric: Present: anxiety, depression - Endocrine Endocrine: Absent: palpitations - Hematologic/Lymphatic Hematologic/Lymphatic: Absent: easy bleeding Past Medical History Medical History Updates: Hypertension. Hypothyroidism. Questionable history of left breast cancer with lumpectomy at age 20 and ovarian cancer without surgical treatment also at age 20. Coronary artery disease. Moderate pulmonary hypertension. Asthma. COPD. Recurrent bronchitis. IBS. GERD. PUD. Migraines. Ovarian cyst. CVA with prior left hemiparesis with a reported history of about 9. Strokes. Depression. Anxiety. PTSD. Bipolar affective disorder. Substance abuse Surgical History: Cardiac catheterization with drug-eluting stent [place] [address] Calvillo echocardiogram in 2013 showing an EF of 70%, moderate pulmonary hypertension. Left breast lumpectomy. Facial reconstruction. Partial hysterectomy. Carpal tunnel Release. Tonsillectomy. Surgery for endometriosis 3 Family History Updates: Mother of lymphatic cancer. Father of lung cancer. Several people in her family with diabetes. Son with Crohn's disease Family History: As Above - Social History Smoking status: Current every day smoker (trying to cut back) Substance use type: former substance user Medications Home Medications Medication Instructions Recorded Confirmed Type Isosorbide Mononitrate ER [Imdur] 30 mg PO BID 04/21/17 03/22/18 History Levothyroxine Tab [Synthroid] 100 mcg PO DAILY 04/21/17 03/22/18 History Nitroglycerin Patch [Nitro-Dur 0.2 1 patch TD DAILY 04/21/17 03/22/18 History mg/Hr] Simvastatin [Zocor] 40 mg PO HS 06/26/17 03/22/18 History Bisoprolol/Hctz 10/6.25 [Ziac] 1 tab PO DAILY 03/04/18 03/22/18 History FLUoxetine [Prozac] 20 mg PO HS 03/04/18 03/22/18 History Lisinopril [Prinivil] 10 mg PO DAILY 03/04/18 03/22/18 History Omeprazole 40 mg PO BID 03/04/18 03/22/18 History Albuterol HFA Inhaler [Ventolin 2 puff ORAL INH Q6HR PRN 03/21/18 03/22/18 History Hfa 90 mcg/actuation] Clopidogrel [Plavix] 75 mg PO DAILY 03/21/18 03/22/18 History Dicyclomine [Bentyl] 20 mg PO QID 03/21/18 03/22/18 History Doxycycline [Vibramycin] 100 mg PO BID 03/21/18 03/22/18 History HydrOXYzine [Atarax] 10 mg PO Q8H PRN 03/21/18 03/22/18 History Nitroglycerin [Nitroglycerin] 0.4 mg PO Q5MIN3 PRN 03/21/18 03/22/18 History Albuterol Sulfate 2.5 mg AEROSOL TID 03/22/18 03/22/18 History Allergies Allergy/AdvReac Type Severity Reaction Status Date / Time azithromycin Allergy Unknown RASH Verified 03/21/18 10:45 Iodinated Contrast- Oral and Allergy Unknown Verified 03/21/18 10:45 IV Dye Penicillins Allergy Unknown ANAPHYLACTIC Verified 03/21/18 10:45 SHOCK ketorolac AdvReac Unknown VOMITING Verified 03/21/18 10:45 Exam Vital Signs: Temperature 102.3 F H 03/22/18 14:30 Pulse Rate 75 03/22/18 15:45 Respiratory Rate 40 H 03/22/18 15:45 Blood Pressure 150/80 H 03/22/18 14:45 Pulse Oximetry 93 03/22/18 15:45 Height/Weight/BMI: Height 1.55 m Weight 68.5 kg - Constitutional Present: mild distress, well nourished, well developed, thin - Routine HEENT Exam Head: Present: normocephalic Eye: Present: PERRL. Absent: conjunctival icterus, scleral injection ENT: Present: mucous membranes moist. Absent: dentition normal (edentulous) - Routine Neck Exam Present: supple. Absent: lymphadenopathy - Routine Respiratory Exam Present: accessory muscle use, decreased breath sounds, wheezes - Routine Cardiovascular Exam Present: RRR, S1, S2 - Routine Abdominal Exam Present: soft, normoactive bowel sounds, tenderness (RUQ and epigastric), non distended - Routine Extremities Exam Present: no edema, pulses intact - Routine Skin Exam Present: intact, dry, warm, rash (faint macular papular rash diffuse) - Routine Neurological Exam Present: alert, oriented X3, CN II-XII intact, moving all extremities, normal speech - Routine Psychiatric Exam Present: normal affect, normal thought process, cooperative Results - Labs CBC & Chem 7: 03/22/18 14:42 03/22/18 14:55 Microbiology Results: Microbiology 03/22/18 15:03 Peripheral/Iv Start Blood Culture - Preliminary Culture Initiated - Results Pending 03/22/18 14:55 Peripheral/Iv Start Blood Culture - Preliminary Culture Initiated - Results Pending - Imaging and Cardiology Chest x-ray Status: image reviewed by me Additional comments: Right-sided pneumonia Assessment and Plan Assessment and Plan: Assessment Community-acquired pneumonia. Rule out sepsis with SIRS criteria of leukocytosis, fever and tachypnea Abnormal EKG with chest pain Suspect drug rash to doxycycline Hypertension Hypothyroidism Questionable history of left breast cancer with lumpectomy at age 20 and ovarian cancer without surgical treatment also at age 20. Coronary artery disease. Moderate pulmonary hypertension. Asthma. COPD Recurrent bronchitis. IBS GERD PUD. Migraines. CVA with prior left hemiparesis with a reported history of about 9 Strokes. Depression Anxiety. PTSD Bipolar affective disorder. Substance abuse Plan Admit to observation status under Dr. Freeman. CODE STATUS: DO NOT RESUSCITATE PCP Dani Zepeda APRN at [facility] Community acquired pneumonia and COPD -Levaquin daily -DuoNeb every 6 hours -Pulmicort twice a day -Give a dose of IV Solu-Medrol now and start prednisone tomorrow -Monitor oxygen saturations, currently on room air -Check lipase due to right upper quadrant and epigastric tenderness Abnormal EKG with chest pain -Consulted Dr. Rachel -Telemetry and trend serial troponin -resume home meds for Coronary artery disease Suspected drug rash to doxycycline -steroids DVT Prophylaxis: SCD's Resuscitation Status: Do Not Resuscitate - Physician Narrative Narrative: Date: 03/22/18 Time: 1924 Have independently interviewed and examined pt. Chart reviewed. Case discussed with ED physician and my EMERGENCY RESPONSE COORDINATOR. Care plan developed with my supervision; agree with above. Presents to ED with increased temp and not feeling well. Stared on antibiotics recently for bronchitis, did develop rash shortly afterwards. Started feeling more weak, tired, achy, and miserable yesterday. Some increasing cough and congestion. Today, temp elevating. No nausea, but appetite with decrease. No diarrhea. Sore area to right lower ribcage-point tender. Evaluated in ED. Temp with elevation and WBC elevated. BP running in the 150s. Maintaining O2 saturations. Placed in OBS for further care and treatment. Lungs: decreased, course upper airway noises. CV: regular AB: soft nt Gen: looks tired and weak MSE: awake alert appropriate Plan: OBS. Continue Levaquin initiated in ED for coverage. IVF of 1/2NS for hydration. Neb treatments and acapella. Will give Solu-Medrol x1 and start prednisone tomorrow. Lactate repeat with elevation - not seeing evidence for hypotension; will recheck lactate and continue to monitor BP. SCD for DVT prevention. Consult with Dr Rachel for EKG changes noted on presentation - tele and serial enzymes. DNR as per her requests. Care to return to [facility] at time of discharge from [facility] [place]. Hospital Course Summary Disclaimer: The visit summary below is not to be considered part of the above Progress Note. Hospital Course: 03/22/18 Admit to observation status under Dr. Freeman. CODE STATUS: DO NOT RESUSCITATE PCP Dani Zepeda APRN at [facility] Community acquired pneumonia and COPD -Levaquin daily -DuoNeb every 6 hours -Pulmicort twice a day -Give a dose of IV Solu-Medrol now and start prednisone tomorrow -1/2NS at 75cc/hr to help maintain hydration -Monitor oxygen saturations, currently on room air -Check lipase due to right upper quadrant and epigastric tenderness Abnormal EKG with chest pain -Consulted Dr. Rachel -Telemetry and trend serial troponin -resume home meds for Coronary artery disease Suspected drug rash to doxycycline -steroids
[2018-03-22] MEDS ORDERED: NITROGLYCERIN 0.4 MG SUBLINGUAL TABLET SL PRN (17:54)
[2018-03-22] MEDS ORDERED: MENTHOL COUGH DROPS (RICOLA) MM PRN (17:54)
[2018-03-22] MEDS ORDERED: BISACODYL 10 MG SUPPOSITORY RECTALLY PRN (17:54)
[2018-03-22] MEDS ORDERED: ALBUTEROL/IPRATROPIUM 2.5mg-0.5mg/3ml NEB AEROSOL PRN (17:54)
[2018-03-22] MEDS ORDERED: PROCHLORPERAZINE 10 MG/2 ML INJECTION IVP PRN (17:54)
[2018-03-22] MEDS ORDERED: DICYCLOMINE 20mg TABLET PO SCH (17:54)
[2018-03-22 18:11] VITALS: BMI 26.7
[2018-03-22] MEDS ORDERED: METHYLPREDNISOLONE SOD SUCC 40mg/ml INJECTION IVP ONE (18:16)
[2018-03-22] MEDS: 1/2 NS 1,000 ML IV SCH (18:21)
[2018-03-22] MEDS ORDERED: METHYLPREDNISOLONE SOD SUCC 125mg/2ml INJECTION IVP ONE (18:30)
[2018-03-22] MEDS ORDERED: ALBUTEROL/IPRATROPIUM 2.5mg-0.5mg/3ml NEB AEROSOL SCH (19:00)
[2018-03-22] MEDS: ALBUTEROL/IPRATROPIUM 2.5mg-0.5mg/3ml NEB AEROSOL SCH (19:27)
[2018-03-22] MEDS: BUDESONIDE INH.SOLN 0.5mg/2ml NEB AEROSOL SCH (19:28)
[2018-03-22] MEDS: OMEPRAZOLE 20 MG CAPSULE PO SCH (20:03)
[2018-03-22] MEDS: DICYCLOMINE 20mg TABLET PO SCH (20:55)
[2018-03-22] MEDS: FLUoxetine 20 MG CAPSULE PO SCH (20:55)
[2018-03-22] MEDS: GUAIFENESIN/D-METHORPHAN 600mg/30mg TABLET PO SCH (20:56)
[2018-03-22] MEDS: ISOSORBIDE MONONITRATE ER 30 MG TABLET PO SCH (20:56)
[2018-03-22] MEDS: SIMVASTATIN 40 MG TABLET PO SCH (20:57)
[2018-03-23] MEDS: OMEPRAZOLE 20 MG CAPSULE PO SCH ×2 (06:16→17:16)
[2018-03-23] MEDS: DICYCLOMINE 20mg TABLET PO SCH ×2 (06:17→14:52)
[2018-03-23] MEDS: 1/2 NS 1,000 ML IV SCH ×3 (07:09→21:40)
[2018-03-23] MEDS: BUDESONIDE INH.SOLN 0.5mg/2ml NEB AEROSOL SCH ×2 (07:47→22:08)
[2018-03-23] MEDS: ALBUTEROL/IPRATROPIUM 2.5mg-0.5mg/3ml NEB AEROSOL SCH ×4 (07:47→22:08)
--- NOTE | 2018-03-23 08:47 | Progress Note ---
- Date 03/23/18 Subjective: Patient seen in f-u of pneumonia. She states she feels some better today but still has SOA and has pain in her RUQ. Requesting ibuprofen for this pain. No n/v. Currently has her O2 off while eating breakfast. O2 sat is 97%. Afebrile since 1430 yesterday. C/o some burning and redness of skin thought to be possible drug reaction to doxy. Had quite a bit of tenderness of skin during her blood draw. Objective Vital signs: Temperature 98 F 03/23/18 00:00 Pulse Rate 71 03/23/18 01:47 Respiratory Rate 24 03/23/18 07:50 Blood Pressure 156/86 H 03/23/18 01:04 Pulse Oximetry 94 03/23/18 07:50 Height/Weight/BMI: Height 1.55 m Weight 64.3 kg Body Mass Index 26.7 - Constitutional Present: no acute distress, well nourished, well developed - Routine HEENT Exam Head: Present: normocephalic, atraumatic - Routine Respiratory Exam Present: decreased breath sounds, wheezes (few inspiratory wheezes anteriorly. Coarse/wheezing on expiration.) - Routine Cardiovascular Exam Present: RRR, murmur - Routine Abdominal Exam Present: soft, non distended. Absent: organomegaly Comments: tender RUQ/R lower ribcage. - Routine Extremities Exam Present: no edema, normal capillary refill - Routine Skin Exam Present: dry, warm - Routine Neurological Exam Present: alert, oriented X3 - Routine Lymphatic Exam Lymphatic: Absent: adenopathy - Routine Psychiatric Exam Present: normal affect, cooperative Results - Labs CBC & Chem 7: 03/23/18 03:23 03/23/18 03:23 Assessment and Plan Assessment and Plan: Assessment Community-acquired pneumonia. Rule out sepsis with SIRS criteria of leukocytosis, fever and tachypnea Abnormal EKG with chest pain Suspect drug rash to doxycycline Hypertension Hypothyroidism Questionable history of left breast cancer with lumpectomy at age 20 and ovarian cancer without surgical treatment also at age 20. Coronary artery disease. Moderate pulmonary hypertension. Asthma. COPD Recurrent bronchitis. IBS GERD PUD. Migraines. CVA with prior left hemiparesis with a reported history of about 9 Strokes. Depression Anxiety. PTSD Bipolar affective disorder. Substance abuse Plan Convert to IP - failed OP tx with doxy. Continue Levaquin IV and po prednisone 40mg. Continue DuoNeb and Pulmicort Tylenol 1000 mg now for her right upper quadrant abdominal pain which is likely related to her coughing. If pain is not improved with Tylenol she may have Ibuprofen-take with food. Benadryl PRN rash/burning sensation likely r/t reaction to doxy. Echocardiogram is pending. Cardiology has been consulted. DVT Prophylaxis: SCD's Resuscitation Status: Do Not Resuscitate - Time spent with patient Time with patient PN: 25 minutes - Physician Narrative Physician: Sohn Freeman MD Narrative: Date: 03/23/18 Time: !855 Have independently interviewed & examined pt. Chart reviewed. Case discussed with CM & my PA. Care plan developed with my supervision; agree with above. Rough day-still very congested and SOA. Having increased work of breathing even at rest. Note cough with some sputum-sputum thick/heavy and hard to clear. Chest wall sore from coughing. No nausea. Appetite improved (she attributes to steroids). Lungs: decreased breath sound, tight and congested with diffuse faint wheezing and labored breathing. CV: regular AB: soft nt/nd MSE: awake alert, converses well, thoughts linear Plan: Will change to inpatient admission status to continue with treatment of pneumonia and COPD exacerbation. Continue with antibiotics, steroids and neb treatments. Will decrease IVF to 50cc/hr as oral drive improving. Encourage ambulation as able. Monitor lab. Hospital Course Summary Disclaimer: The visit summary below is not to be considered part of the above Progress Note. Hospital Course: 03/22/18 Admit to observation status under Dr. Freeman. CODE STATUS: DO NOT RESUSCITATE [facility]CP [facility] Community acquired pneumonia and COPD -Levaquin daily -DuoNeb every 6 hours -Pulmicort twice a day -Give a dose of IV Solu-Medrol now and start prednisone tomorrow -1/2NS at 75cc/hr to help maintain hydration -Monitor oxygen saturations, currently on room air -Check lipase due to right upper quadrant and epigastric tenderness Abnormal EKG with chest pain -Consulted Dr. Rachel -Telemetry and trend serial troponin -resume home meds for Coronary artery disease Suspected drug rash to doxycycline -steroids 03/23/18 Convert to IP - failed OP tx with doxy. Continue Levaquin IV and po prednisone 40mg. Continue DuoNeb and Pulmicort. Tylenol 1000 mg now for her right upper quadrant abdominal pain which is likely related to her coughing. If pain is not improved with Tylenol she may have Ibuprofen-take with food. Benadryl PRN rash/burning sensation likely r/t reaction to doxy. Echocardiogram is pending. Cardiology has been consulted.
[2018-03-23] MEDS ORDERED: IBUPROFEN 600 MG TABLET PO PRN (08:56)
[2018-03-23] MEDS ORDERED: ACETAMINOPHEN 500 MG TABLET PO ONE (08:57)
[2018-03-23] MEDS: CLOPIDOGREL 75 MG TABLET PO SCH (09:08)
[2018-03-23] MEDS: LEVOTHYROXINE 100 MCG TABLET PO SCH (09:08)
[2018-03-23] MEDS: LISINOPRIL 10 MG TABLET PO SCH (09:09)
[2018-03-23] MEDS: PredniSONE 20 MG TABLET PO SCH (09:09)
[2018-03-23] MEDS: GUAIFENESIN/D-METHORPHAN 600mg/30mg TABLET PO SCH ×2 (10:26→21:40)
[2018-03-23] MEDS: NITROGLYCERIN 0.2 MG/HR PATCH TD SCH (10:26)
[2018-03-23] MEDS: DiphenhydrAMINE 25 MG CAPSULE PO PRN ×2 (11:27→18:47)
[2018-03-23] MEDS: ISOSORBIDE MONONITRATE ER 30 MG TABLET PO SCH ×2 (11:28→21:40)
--- NOTE | 2018-03-23 11:31 | Cardiology Consult Note ---
<Sara Bar - Last Filed: 03/24/18 10:15> History of Present Illness Consult date: 03/22/18 Requesting physician: Shon Freeman Chief complaint: EKG changes History of present illness: Sulema is a 63-year-old female who is known to Dr. Rachel with a history of HTN , HLD and COPD. She is undergoing treatment for drug abuse at [facility], and recently has had some health problems. She reports being started on doxycycline 4 days ago by Letty Zepeda APRN, at [employer]. Since then, she's developed red rash to her extremities and to her chest. On 03/21/18, her blood pressure was elevated and she was seen and released in the ED. That evening, she also noted a knot and pain under her right ribs. Around 13:00 on 03/22/18, she began feeling much more poorly with subjective fever and chills, dizziness, productive cough with yellow sputum, difficulty breathing, chest tightness in the middle of her chest, posttussive emesis, and weakness. She returned to the ED and was diagnosed with a right-sided pneumonia; she was febrile with a temperature of 102.3 and tachypneic with a respiratory rate of 28-40 white count of 13,000. Troponin was negative, but EKG showed T-wave inversions and Dr. Rachel recommended cardiac evaluation. She was subsequently admitted under the hospitalist service and Dr. Rachel is consulted for further evaluation. She is seen in her room on Medical. She is a poor historian; she reports a coronary stent placed in 2017, but she is not sure where it was placed in her, which hospital it was done in or what month of 2017. She reports being off of Plavix until 2 weeks ago because she didn't get it refilled. Review of Systems - Constitutional Constitutional: Present: as per HPI - EENMT Balance: Absent: vertigo Mouth/Throat: Absent: sore throat - Cardiovascular Cardiovascular: Present: chest pain, dyspnea on exertion, orthopnea. Absent: palpitations, syncope - Respiratory Respiratory: Present: as per HPI - Gastrointestinal Gastrointestinal: Present: as per HPI - Genitourinary Genitourinary: Absent: dysuria - Neurological Neurological: Present: as per HPI - Endocrine Endocrine: Absent: palpitations PFSH Patient Stated Medical History Cerebrovascular Accident Yes Migraine Yes Syncope Yes Dental Problems Yes Angina Yes Cardiac Arrhythmia Yes Hypertension Yes Asthma Yes Bronchitis Yes Chronic Obstructive Pulmonary Yes Disease (COPD) Pneumonia Yes Gastroesophageal Reflux Yes Disease Anemia Yes: not sure what kind Shingles Yes: LEFT CHEST Bipolar Disorder Yes Depression Yes Substance Use Disorder Yes: LORTAB, METH Ovarian Cysts Yes Post Menopausal Yes Medical History Updates: Hypertension. Hypothyroidism. Questionable history of left breast cancer with lumpectomy at age 20 and ovarian cancer without surgical treatment also at age 20. Coronary artery disease. Moderate pulmonary hypertension. Asthma. COPD. Recurrent bronchitis. IBS. GERD. PUD. Migraines. Ovarian cyst. CVA with prior left hemiparesis with a reported history of about 9. Strokes. Depression. Anxiety. PTSD. Bipolar affective disorder. Substance abuse Surgical History: Cardiac catheterization with drug-eluting stent [place] [address] Calvillo echocardiogram in 2013 showing an EF of 70%, moderate pulmonary hypertension. Left breast lumpectomy. Facial reconstruction. Partial hysterectomy. Carpal tunnel Release. Tonsillectomy. Surgery for endometriosis 3 Family History Updates: Mother of lymphatic cancer. Father of lung cancer. Several people in her family with diabetes. Son with Crohn's disease - Social History Smoking status: Current every day smoker (trying to cut back) Substance use type: former substance user Alcohol intake frequency: does not drink Current occupational status: retired Medications Home Medications Medication Instructions Recorded Confirmed Type Isosorbide Mononitrate ER [Imdur] 30 mg PO BID 04/21/17 03/26/18 History Levothyroxine Tab [Synthroid] 100 mcg PO DAILY 04/21/17 03/26/18 History Nitroglycerin Patch [Nitro-Dur 0.2 1 patch TD DAILY 04/21/17 03/26/18 History mg/Hr] Simvastatin [Zocor] 40 mg PO HS 06/26/17 03/26/18 History Bisoprolol/Hctz 10/6.25 [Ziac] 1 tab PO DAILY 03/04/18 03/26/18 History FLUoxetine [Prozac] 20 mg PO HS 03/04/18 03/26/18 History Lisinopril [Prinivil] 10 mg PO DAILY 03/04/18 03/26/18 History Omeprazole 40 mg PO DAILY 03/04/18 03/26/18 History Clopidogrel [Plavix] 75 mg PO DAILY 03/21/18 03/26/18 History Dicyclomine [Bentyl] 20 mg PO QID 03/21/18 03/26/18 History HydrOXYzine [Atarax] 10 mg PO Q8H PRN 03/21/18 03/26/18 History Nitroglycerin 0.4 mg PO Q5MIN3 PRN 03/21/18 03/26/18 History Aspirin *EC* [Ecotrin] 81 mg PO DAILY tab 03/24/18 03/26/18 Rx DiphenhydrAMINE [Benadryl] 50 mg PO Q6H PRN cap 03/24/18 03/26/18 Rx Guaifenesin/Dm [Mucinex Dm] 1 tab PO BID tab 03/24/18 03/26/18 Rx Ibuprofen [Motrin] 600 mg PO Q8H PRN tab 03/24/18 03/26/18 Rx Levofloxacin [Levaquin] 750 mg PO DAILY #5 tab 03/24/18 03/26/18 Rx Albuterol Sulfate [Proair Hfa] 2 puff INH Q4H PRN 03/26/18 03/26/18 History Albuterol/Ipratropium [Duoneb] 1 unit AEROSOL Q4H #100 vial 03/26/18 Rx Benzonatate [Tessalon Perles] 200 mg PO TID PRN #30 cap 03/26/18 Rx Phenylephrine SUPP [Anusol Supp] 1 suppositor [place] DAILY #10 03/26/18 Rx suppositor PredniSONE [Deltasone 20 mg] 40 mg PO WB #10 tab 03/26/18 Rx Promethazine + Dm Liq [Phenergan 5 ml PO HS PRN #2 oz 03/26/18 Rx Dm Syrup] Tiotropium Handihaler [Spiriva] 1 cap INH DAILY 03/26/18 03/26/18 History Allergies Allergy/AdvReac Type Severity Reaction Status Date / Time azithromycin Allergy Unknown RASH Verified 03/26/18 10:08 Iodinated Contrast- Oral and Allergy Unknown Verified 03/26/18 10:08 IV Dye Penicillins Allergy Unknown ANAPHYLACTIC Verified 03/26/18 10:08 SHOCK ketorolac AdvReac Unknown VOMITING Verified 03/26/18 10:08 Exam Vital signs: Temperature 96.4 F L 03/23/18 08:58 Pulse Rate 82 05/10/18 08:58 Respiratory Rate 20 03/23/18 11:03 Blood Pressure 135/74 03/23/18 08:58 Pulse Oximetry 93 03/23/18 11:03 - Constitutional moderate distress, thin, cooperative - Routine HEENT Exam Head: Present: normocephalic ENT: Present: mucous membranes dry - Routine Neck Exam Absent: JVD, carotid bruit - Routine Chest/Breast/Axilla Exam Chest wall: Absent: tenderness - Routine Respiratory Exam Present: dyspnea, wheezes (throughout), diminished air movement - Routine Cardiovascular Exam Present: RRR, murmur (II/) - Routine Abdominal Exam Present: soft, non tender - Routine Extremities Exam Present: no edema, pulses intact - Routine Skin Exam Present: intact, dry, warm - Routine Neurological Exam Present: alert, oriented X3 - Routine Psychiatric Exam Present: normal affect, anxious Results 03/24/18 04:20 03/24/18 04:20 Cardiac Enzymes 03/22/18 03/23/18 03/23/18 Range/Units 18:32 03:23 08:53 Troponin I < 0.012 < 0.012 < 0.012 (0-0.12) ng/ml CBC 03/23/18 Range/Units 03:23 WBC 7.9 (4.5-11.0) T/MM3 RBC 3.97 L (4.00-5.20) M/MM3 Hgb 11.3 L (12-16) GM/DL Hct 34.7 L (36-46) % Plt Count 299 (130-400) T/MM3 Neut # (Auto) 5.3 (1.8-7.7) T/MM3 Lymph # (Auto) 2.4 (1-4.8) T/MM3 Baca # (Auto) 0.1 (0-0.8) T/MM3 Eos # (Auto) 0.0 (0-0.5) T/MM3 Baso # (Auto) 0.0 (0-0.2) T/MM3 Comprehensive Metabolic Panel 03/23/18 Range/Units 03:23 Sodium 138 (134-144) MEQ/L Potassium 4.0 (3.6-5) MEQ/L Chloride 105 (98-107) MEQ/L Carbon Dioxide 24 (22-30) MEQ/L BUN 18.0 H (7-17) MG/DL Creatinine 0.6 L D (0.7-1.2) mg/dL Glucose 140 H (65-110) MG/DL Calcium 9.0 (8.4-10.2) MG/DL Intake and Output 03/22/18 03/23/18 03/23/18 22:59 06:59 14:59 Intake Total 1124 / 1124 200 / 200 1200 / 1200 Output Total 900 / 900 1050 / 1050 700 / 700 Balance 224 / 224 -850 / -850 500 / 500 Intake: IV 650 / 650 960 / 960 1/2 Ns 1,000 ml @ 75 mls/hr IV 960 / 960 .[id number] KARLA Rx#:[id number] Levofloxacin Pb 750 mg In 150 150 / 150 ml @ 100 mls/hr IV Q24H KARLA Rx# :[id number] NS 500ml 500 ml @ 999.9 mls/hr 500 / 500 IV .Q30M ONE Rx#:[id number] Oral 474 / 474 200 / 200 240 / 240 Output: Urine 900 / 900 1050 / 1050 700 / 700 Other: Urine Appearance Clear Urine Color Yellow Urine Odor Normal # Voids 2 1 Weight 141 lb 12.116 oz 140 lb 10.479 oz Patient Weight 03/24/18 06:59 Weight 140 lb 10.479 oz - Imaging and Cardiology Imaging & Cardiology Narrative: Date of Exam: 03/22/18 Ordering Provider: Rai Gonzalez DO Type of Exam(s): XR chest 1V Reason for Exam(s): cough Indication: cough PROCEDURE: XR chest 1V: Encounter: Initial Comparison: March 10, 2018 Findings: New airspace consolidation in the infrahilar region, possibly within the right middle lobe. Left lung is clear. Right upper lobe is clear. No pneumothorax or pleural effusion. Calcified mediastinal lymph nodes. Heart size and mediastinal contours are stable. Pulmonary vascularity is normal. Impression: New airspace disease in the right middle lobe probably representing pneumonia. 03/23/18 16:37 EKG interpretations - EKG EKG results cardiology: sinus rhythm - Blocks, axis, hypertrophy, ST abn Repolarization changes or abnormalities: nonspecific abnormality, ST segment, and/or T wave (T wave inversions) Assessment and Plan - Assessment and Plan (1) Abnormal EKG Status: Acute EKG SR, short [place], T wave inversion in precordial leads - repeat EKG (2) Chest pain, atypical Status: Acute Right side chest pain - Abnormal EKG: SR, short [place], T wave inversion in precordial leads - Serial troponin negative X4 - monitor cardiac telemetry - 2D echo pending - Continue home Aspirin, Plavix, Lisinopril, Imdur, statin and nitro patch (3) CAP (community acquired pneumonia) Status: Acute Neb/ ABX per hospitalist team (4) CAD (coronary artery disease) Status: Chronic Continue home Aspirin, Plavix, Lisinopril, Imdur, statin and nitro patch (5) Essential (primary) hypertension Status: Chronic Continue home Bisoprolol/HCTZ and lisinopril - routine monitoring (6) Tobacco abuse Status: Chronic per attending (7) Mixed hyperlipidemia Status: Chronic Continue home Simvastatin - Assessment and Plan Abnormal EKG Current visit: Yes Status: Acute EKG SR, short NY, T wave inversion in precordial leads - repeat EKG Chest pain, atypical Current visit: No Status: Acute Right side chest pain - Abnormal EKG: SR, short NY, T wave inversion in precordial leads - Serial troponin negative X4 - monitor cardiac telemetry - 2D echo pending - Continue home Aspirin, Plavix, Lisinopril, Imdur, statin and nitro patch CAP (community acquired pneumonia) Current visit: No Status: Acute Neb/ ABX per hospitalist team CAD (coronary artery disease) Current visit: No Status: Chronic Continue home Aspirin, Plavix, Lisinopril, Imdur, statin and nitro patch Essential (primary) hypertension Current visit: Yes Status: Chronic Continue home Bisoprolol/HCTZ and lisinopril - routine monitoring Mixed hyperlipidemia Current visit: Yes Status: Chronic Continue home Simvastatin Tobacco abuse Current visit: No Status: Chronic per attending Thank you for allowing us to participate in the care of this patient. Hospital Course Summary Disclaimer: The visit summary below is not to be considered part of the above Progress Note. Hospital Course: 03/22/18 Admit to observation status under Dr. Freeman. CODE STATUS: DO NOT RESUSCITATE PCP Dani Zepeda APRN at [facility] Community acquired pneumonia and COPD -Levaquin daily -DuoNeb every 6 hours -Pulmicort twice a day -Give a dose of IV Solu-Medrol now and start prednisone tomorrow -1/2NS at 75cc/hr to help maintain hydration -Monitor oxygen saturations, currently on room air -Check lipase due to right upper quadrant and epigastric tenderness Abnormal EKG with chest pain -Consulted Dr. Rachel -Telemetry and trend serial troponin -resume home meds for Coronary artery disease Suspected drug rash to doxycycline -steroids 03/23/18 Convert to IP - failed OP tx with doxy. Continue Levaquin IV and po prednisone 40mg. Continue Duonebs and Pulmicort Tylenol 1000 mg now for her right upper quadrant abdominal pain which is likely related to her coughing. If pain is not improved with Tylenol she may have Ibuprofen-take with food. Benadryl PRN rash/burning sensation likely r/t reaction to doxy. Echocardiogram is pending. Cardiology has been consulted. <George Rachel - Last Filed: 03/30/18 13:45> Exam Vital signs: Temperature 99.5 F 03/24/18 08:00 Pulse Rate 63 03/24/18 08:20 Respiratory Rate 22 03/24/18 13:20 Blood Pressure 134/76 03/24/18 08:00 Pulse Oximetry 92 03/24/18 13:20 Results 03/24/18 04:20 03/24/18 04:20 Assessment and Plan - Attestation Attestation Narrative: 03/30/18 13:45 Recommendation After examining the patient I agree with the above assessment. I am involved in the formulation of the patient's plan of care. - Assessment and Plan (1) CAP (community acquired pneumonia) Status: Acute (2) Tobacco abuse Status: Chronic (3) Chest pain, atypical Status: Acute (4) CAD (coronary artery disease) Status: Chronic (5) Abnormal EKG Status: Acute (6) Essential (primary) hypertension Status: Chronic (7) Mixed hyperlipidemia Status: Chronic Hospital Course Summary Disclaimer: The visit summary below is not to be considered part of the above Progress Note.
[2018-03-23] MEDS: LEVOFLOXACIN PB 750 MG/150 ML BAG IV SCH (17:16)
[2018-03-23] MEDS: ASPIRIN *EC* 81 MG TABLET PO SCH (17:16)
[2018-03-23] MEDS ORDERED: PNEUMOCOCCAL 23 VACCINE 0.5ml INJECTION IM ONE (17:20)
[2018-03-23] MEDS: ACETAMINOPHEN 325 MG TABLET PO PRN (17:28)
--- NOTE | 2018-03-23 21:15 | Echocardiogram ---
DATE OF PROCEDURE March 23, 2018 This is a two-dimensional echo with spectral Doppler, color-flow and M-mode. It was obtained in a patient with chest pain. Left atrium is dilated. Left ventricular end-diastolic dimension is normal. Left ventricular wall thickness is increased. LV systolic function is normal with ejection fraction of 64%. Right atrium is normal. Right ventricle is normal. Aortic root dimension is normal. Mitral valve annulus is calcified. Mitral valve leaflets are normal with mild mitral regurgitation. Aortic valve shows fibrocalcific changes with restriction on opening motion. Transaortic velocities are increased with peak velocity of 3.06 m/sec with peak gradient of 38 and mean gradient of 18. Aortic valve area is calculated at 1.13 cm2. There is no aortic insufficiency. Tricuspid valve shows mild tricuspid regurgitation with moderate pulmonary hypertension with estimated pulmonary artery systolic pressure of 53. Pulmonary valve shows trace of pulmonary insufficiency. There is no pericardial effusion. IMPRESSION 1. Normal LV systolic function with ejection fraction of 64%. 2. Moderate aortic stenosis with a valve area of 1.3 cm2. 3. Left ventricular hypertrophy. 4. Mitral annulus calcification with mild mitral regurgitation. 5. Trace of pulmonary insufficiency. 6. Mild tricuspid regurgitation with moderate pulmonary hypertension with estimated pulmonary artery systolic pressure of 53. MTDD
[2018-03-23] MEDS: SIMVASTATIN 40 MG TABLET PO SCH (21:40)
[2018-03-23] MEDS: FLUoxetine 20 MG CAPSULE PO SCH (21:40)
[2018-03-23] MEDS: PROMETHAZINE/CODEINE ORAL LIQUID 5ml PO PRN (21:41)
[2018-03-24] MEDS: OMEPRAZOLE 20 MG CAPSULE PO SCH ×2 (06:17→18:28)
[2018-03-24 08:21] VITALS: PULSE 63
[2018-03-24 08:37] VITALS: BP 134/76; TEMP 99.5
[2018-03-24] MEDS: GUAIFENESIN/D-METHORPHAN 600mg/30mg TABLET PO SCH (08:40)
[2018-03-24] MEDS: CLOPIDOGREL 75 MG TABLET PO SCH (08:40)
[2018-03-24] MEDS: PredniSONE 20 MG TABLET PO SCH (08:40)
[2018-03-24] MEDS: ISOSORBIDE MONONITRATE ER 30 MG TABLET PO SCH (08:40)
[2018-03-24] MEDS: LEVOTHYROXINE 100 MCG TABLET PO SCH (08:41)
[2018-03-24] MEDS: LISINOPRIL 10 MG TABLET PO SCH (08:41)
[2018-03-24] MEDS: ASPIRIN *EC* 81 MG TABLET PO SCH (08:41)
[2018-03-24] MEDS: BUDESONIDE INH.SOLN 0.5mg/2ml NEB AEROSOL SCH (09:09)
[2018-03-24] MEDS: ALBUTEROL/IPRATROPIUM 2.5mg-0.5mg/3ml NEB AEROSOL SCH ×3 (09:09→18:27)
[2018-03-24] MEDS: ACETAMINOPHEN 325 MG TABLET PO PRN (10:24)
[2018-03-24] MEDS: NITROGLYCERIN 0.2 MG/HR PATCH TD SCH (10:36)
[2018-03-24] MEDS: PROMETHAZINE/CODEINE ORAL LIQUID 5ml PO PRN (10:36)
--- NOTE | 2018-03-24 12:08 | Progress Note ---
- Date 03/24/18 Subjective: Patient seen in f-u of pneumonia. She is still asleep at 10am when I saw her. When I told her her breakfast was on her table, she sat up quickly and grabbed her tray. She reports 7/10 pain in R lower chest - likely r/t coughing. Feels tired. No worsening of sxs. No n/v, fever or chills. Objective Vital signs: Temperature 99.5 F 03/24/18 08:00 Pulse Rate 63 03/24/18 08:20 Respiratory Rate 16 03/24/18 08:00 Blood Pressure 134/76 03/24/18 08:00 Pulse Oximetry 93 03/24/18 08:00 Height/Weight/BMI: Weight 65.5 kg - Constitutional Present: no acute distress, well nourished, well developed - Routine HEENT Exam Head: Present: normocephalic, atraumatic - Routine Respiratory Exam Present: wheezes (expiratory) - Routine Cardiovascular Exam Present: RRR, no murmur - Routine Abdominal Exam Present: soft, non distended, non tender - Routine Extremities Exam Present: no edema, normal capillary refill - Routine Skin Exam Present: dry, warm - Routine Neurological Exam Present: alert, oriented X3 - Routine Lymphatic Exam Lymphatic: Absent: adenopathy - Routine Psychiatric Exam Present: normal affect, cooperative Results - Labs CBC & Chem 7: 03/24/18 04:20 03/24/18 04:20 Assessment and Plan Assessment and Plan: Assessment Community-acquired pneumonia. Rule out sepsis with SIRS criteria of leukocytosis, fever and tachypnea Abnormal EKG with chest pain Suspect drug rash to doxycycline Hypertension Hypothyroidism Questionable history of left breast cancer with lumpectomy at age 20 and ovarian cancer without surgical treatment also at age 20. Coronary artery disease. Moderate aortic stenosis Mild mitral regurgitation Moderate pulmonary hypertension Asthma COPD Recurrent bronchitis IBS GERD PUD Migraines CVA with prior left hemiparesis with a reported history of about 9 Strokes Depression Anxiety PTSD Bipolar affective disorder Substance abuse Plan OK to convert to po Levaquin and continue po prednisone 40mg. Continue DuoNeb and Pulmicort. Has been on room air since last evening. May be able to DC later today. Tylenol/Ibuprofen for R chest pain r/t coughing. Leukocytosis likely steroid effect. DVT Prophylaxis: SCD's Resuscitation Status: Do Not Resuscitate - Physician Narrative Physician: Shon Freeman MD Narrative: Date: 03/24/18 Time: 1415 Have independently interviewed and examined pt. Chart reviewed. Case discussed with my PA. Care plan developed with my supervision; agree with above. Doing better today. Still with cough and congestion, but decreasing. Notes pain to right lower ribcage, worse with cough and positional changes. Less SOA. Eating well. No n/v or ab pain. Stools stable. Urinating well. No f/c. Strength improving. Lungs: decreased bilaterally, improving air movement with less respiratory distress. Scattered wheezes. CV: regular with murmur AB: soft nt/nd MSE: alert Plan: With significant improvements noted, can discharge to home. Will continue with levofloxacin 750mg daily for 5 days, Prednisone 40mg daily x5 days and then decrease to 20mg daily for 5 days. Continue Acapella QID for 1 week, then prn. May use Mucinex DM BID for 1 week, then as needed. OTC cough medications O2. Ibuprofen 600-800mg TID with food prn pain. F/U with Letty Zepeda on 03/28 as scheduled. See orders for details. Hospital Course Summary Disclaimer: The visit summary below is not to be considered part of the above Progress Note. Hospital Course: 03/22/18 Admit to observation status under Dr. Freeman. CODE STATUS: DO NOT RESUSCITATE PCP Dani Zepeda APRN at [facility] Community acquired pneumonia and COPD -Levaquin daily -DuoNeb every 6 hours -Pulmicort twice a day -Give a dose of IV Solu-Medrol now and start prednisone tomorrow -1/2NS at 75cc/hr to help maintain hydration -Monitor oxygen saturations, currently on room air -Check lipase due to right upper quadrant and epigastric tenderness Abnormal EKG with chest pain -Consulted Dr. Rachel -Telemetry and trend serial troponin -resume home meds for Coronary artery disease Suspected drug rash to doxycycline -steroids 03/23/18 Convert to IP - failed OP tx with doxy. Continue Levaquin IV and po prednisone 40mg. Continue DuoNeb and Pulmicort Tylenol 1000 mg now for her right upper quadrant abdominal pain which is likely related to her coughing. If pain is not improved with Tylenol she may have Ibuprofen-take with food. Benadryl PRN rash/burning sensation likely r/t reaction to doxy. Echocardiogram is pending. Cardiology has been consulted. 03/24/18 OK to convert to po Levaquin and continue po prednisone 40mg. Continue DuoNeb and Pulmicort. Has been on room air since last evening. May be able to DC later today. Tylenol/Ibuprofen for R chest pain r/t coughing. Leukocytosis likely steroid effect. Doing well this afternoon. Breathing less labored. Maintaining saturations well. Eating well. Strength improving. Medically stable for discharge. Patient feels comfortable to discharge back to [facility]. Will continue with levofloxacin 750mg daily for 5 days. Prednisone 40mg daily x5 days and then decrease to 20mg daily for 5 days. Continue Acapella QID for 1 week, then prn. May use Mucinex DM BID for 1 week, then as needed. OTC cough medications O2. Ibuprofen 600-800mg TID with food prn pain. F/U with Letty Zepeda on 03/28 as scheduled. See orders for details.
[2018-03-24 13:35] VITALS: RESP 22; O2SAT 92
[2018-03-24] MEDS: 1/2 NS 1,000 ML IV SCH (18:27)
[2018-03-24] MEDS: LEVOFLOXACIN PB 750 MG/150 ML BAG IV SCH (18:27)
[2018-03-24] MEDS ORDERED: ISOSORBIDE MONONITRATE ER 30 MG TABLET PO SCH (20:00)
--- NOTE | 2018-03-24 20:47 | Discharge Summary ---
Discharge Information Date of admission: 03/23/18 13:47 Anticipated date of discharge: 03/24/18 Attending Physician: Shon Freeman MD Primary care physician: Letty Zepeda APRN Consults: Physician consult: Dr Rachel Reason for Exam: EKG changes - Discharge Diagnosis (1) Community acquired pneumonia Status: Acute Discharge diagnosis Community-acquired pneumonia. Associated conditions and complications Sepsis secondray to pneumonia with SIRS criteria of leukocytosis, fever and tachypnea Abnormal EKG with chest pain Suspect drug rash to doxycycline Hypertension Hypothyroidism Questionable history of left breast cancer with lumpectomy at age 20 and ovarian cancer without surgical treatment also at age 20. Coronary artery disease Moderate aortic stenosis Mild mitral regurgitation Moderate pulmonary hypertension Asthma COPD Recurrent bronchitis IBS GERD PUD Migraines CVA with prior left hemiparesis with a reported history of about 9 Strokes Depression Anxiety PTSD Bipolar affective disorder Substance abuse - Procedures Procedures: Date of Exam: 03/23/18 Type of Exam: US ECHO Doppler complete This is a two-dimensional echo with spectral Doppler, color-flow and M-mode. It was obtained in a patient with chest pain. Left atrium is dilated. Left ventricular end-diastolic dimension is normal. Left ventricular wall thickness is increased. LV systolic function is normal with ejection fraction of 64%. Right atrium is normal. Right ventricle is normal. Aortic root dimension is normal. Mitral valve annulus is calcified. Mitral valve leaflets are normal with mild mitral regurgitation. Aortic valve shows fibrocalcific changes with restriction on opening motion. Transaortic velocities are increased with peak velocity of 3.06 m/sec with peak gradient of 38 and mean gradient of 18. Aortic valve area is calculated at 1.13 cm2. There is no aortic insufficiency. Tricuspid valve shows mild tricuspid regurgitation with moderate pulmonary hypertension with estimated pulmonary artery systolic pressure of 53. Pulmonary valve shows trace of pulmonary insufficiency. There is no pericardial effusion. IMPRESSION 1. Normal LV systolic function with ejection fraction of 64%. 2. Moderate aortic stenosis with a valve area of 1.3 cm2. 3. Left ventricular hypertrophy. 4. Mitral annulus calcification with mild mitral regurgitation. 5. Trace of pulmonary insufficiency. 6. Mild tricuspid regurgitation with moderate pulmonary hypertension with estimated pulmonary artery systolic pressure of 53. - Laboratory Labs: Admit Lab 03/22/18 14:42 WBC 13.0 H Hgb 12.3 Hct 38.0 MCV 88.0 Plt Count 322 Neut % (Auto) 44.0 Lymph % (Auto) 46.0 H [place] % (Auto) 5.3 Eos % (Auto) 3.9 Baso % (Auto) 0.6 Admit Lab 03/22/18 03/22/18 14:42 14:55 Sodium 142 Potassium 4.5 Chloride 105 Carbon Dioxide 27 Anion Gap 10 BUN 20.0 H Creatinine 0.9 GFR Calculation 64 BUN/Creatinine Ratio 22 Glucose 144 H Calculated Osmolality 279 Calcium 9.1 Total Bilirubin < 0.10 L AST 15 ALT 13 Alkaline Phosphatase 66 Troponin I < 0.012 Total Protein 6.7 Albumin 3.7 Globulin 3.0 Albumin/Globulin Ratio 1.2 Plasma Lactate 1.0 Procalcitonin < 0.05 03/24/18 04:20 03/24/18 04:20 - Radiology Radiology: Date of Exam: 03/22/18 Type of Exam: XR chest 1V Findings: New airspace consolidation in the infrahilar region, possibly within the right middle lobe. Left lung is clear. Right upper lobe is clear. No pneumothorax or pleural effusion. Calcified mediastinal lymph nodes. Heart size and mediastinal contours are stable. Pulmonary vascularity is normal. Impression: New airspace disease in the right middle lobe probably representing pneumonia. History of Present Illness HPI: Sulema Suarez is a 63-year-old female with a history of COPD. She is undergoing treatment for drug abuse at [facility], and recently has had some health problems. She reports being started on doxycycline 3-4 days ago by Letty Zepeda APRN, at [facility]. Since then, she's developed red rash to her extremities and to her chest. On 03/21/18, her blood pressure was elevated and she was seen and released in the emergency department. That evening, she also noted a knot and pain under her right ribs. Around 13:00 on 03/22/18, she began feeling much more poorly with subjective fever and chills, productive cough with yellow sputum, difficulty breathing, chest tightness in the middle of her chest, posttussive emesis, and weakness. She returned to the emergency department and was diagnosed with a right-sided pneumonia. In addition, she was febrile with a temperature of 102.3 and to get neck with a respiratory rate of 28-40. She is able to maintain saturations on room air. Lactic acid was negative at 1.0. Procalcitonin was unremarkable. She had a leukocytosis with a white count of 13, 000. Troponin was negative, but EKG showed T-wave inversions and Dr. Rachel recommended cardiac evaluation. She was subsequently admitted under the hospitalist service. For complete details of the H&P refer to that document. Objective Vital signs: Temperature 99.5 F 03/24/18 08:00 Pulse Rate 63 03/24/18 08:20 Respiratory Rate 22 03/24/18 13:20 Blood Pressure 134/76 03/24/18 08:00 Pulse Oximetry 92 03/24/18 13:20 Height/Weight/BMI: Weight 65.5 kg Hospital Course This is a general summary of the patient's hospital course. For more details refer to the complete medical record. Hospital course: 03/22/18 Admit to observation status under Dr. Freeman. CODE STATUS: DO NOT RESUSCITATE PCP Dani Zepeda APRN at [facility] Community acquired pneumonia and COPD -Levaquin daily -DuoNeb every 6 hours -Pulmicort twice a day -Give a dose of IV Solu-Medrol now and start prednisone tomorrow -1/2NS at 75cc/hr to help maintain hydration -Monitor oxygen saturations, currently on room air -Check lipase due to right upper quadrant and epigastric tenderness Abnormal EKG with chest pain -Consulted Dr. Rachel -Telemetry and trend serial troponin -resume home meds for Coronary artery disease Suspected drug rash to doxycycline -steroids 03/23/18 Convert to IP - failed OP tx with doxy. Continue Levaquin IV and po prednisone 40mg. Continue DuoNeb and Pulmicort Tylenol 1000 mg now for her right upper quadrant abdominal pain which is likely related to her coughing. If pain is not improved with Tylenol she may have Ibuprofen-take with food. Benadryl PRN rash/burning sensation likely r/t reaction to doxy. Echocardiogram is pending. Cardiology has been consulted. 03/24/18 OK to convert to po Levaquin and continue po prednisone 40mg. Continue DuoNeb and Pulmicort. Has been on room air since last evening. May be able to DC later today. Tylenol/Ibuprofen for R chest pain r/t coughing. Leukocytosis likely steroid effect. Doing well this afternoon. Breathing less labored. Maintaining saturations well. Eating well. Strength improving. Medically stable for discharge. Patient feels comfortable to discharge back to [facility]. Will continue with levofloxacin 750mg daily for 5 days. Prednisone 40mg daily x5 days and then decrease to 20mg daily for 5 days. Continue Acapella QID for 1 week, then prn. May use Mucinex DM BID for 1 week, then as needed. OTC cough medications O2. Ibuprofen 600-800mg TID with food prn pain. F/U with Letty Duane on 03/28 as scheduled. See orders for details. Time spent with patient: discharge greater than 30 minutes Resuscitation Status: Do Not Resuscitate Discharge Plan - Discharge Disposition Discharge Date: 03/24/18 Disposition: 01 Discharged Home, Self-Care *Condition: Improved Reason For Visit (Visit label in EMR): Pneumonia - Discharge Medications *Discharge Medications: New DiphenhydrAMINE [Benadryl] 50 mg PO Q6H PRN cap PRN Reason: Itching Guaifenesin/Dm [Mucinex Dm] 1 tab PO BID tab Ibuprofen [Motrin] 600 mg PO Q8H PRN tab PRN Reason: RUQ pain Levofloxacin [Levaquin] 750 mg PO DAILY #5 tab PredniSONE [Deltasone 20 mg] 40 mg PO WB #15 tab Aspirin *EC* [Ecotrin] 81 mg PO DAILY tab Continue Levothyroxine Tab [Synthroid] 100 mcg PO DAILY Nitroglycerin Patch [Nitro-Dur 0.2 mg/Hr] 1 patch TD DAILY Isosorbide Mononitrate ER [Imdur] 30 mg PO BID Simvastatin [Zocor] 40 mg PO HS Bisoprolol/Hctz 10/6.25 [Ziac] 1 tab PO DAILY FLUoxetine [Prozac] 20 mg PO HS Omeprazole 40 mg PO BID Lisinopril [Prinivil] 10 mg PO DAILY Albuterol HFA Inhaler [Ventolin Hfa 90 mcg/actuation] 2 puff ORAL INH Q6HR PRN PRN Reason: Shortness Of Air/Wheezing Nitroglycerin 0.4 mg PO Q5MIN3 PRN PRN Reason: Chest Pain HydrOXYzine [Atarax] 10 mg PO Q8H PRN PRN Reason: Prn Orders Clopidogrel [Plavix] 75 mg PO DAILY Albuterol Sulfate 2.5 mg AEROSOL TID Dicyclomine [Bentyl] 20 mg PO QID Discontinued Doxycycline [Vibramycin] 100 mg PO BID - Discharge Packet/Instructions *Diet: Low sodium Heart Healthy diet *Activity: As tolerated *Pain Management/Treatment: May use ibuprofen 200mg 3-4 tablets 3 times a day with food as needed for pain. *Wound Care: n/a Additional Instructions: Continue Acapella Four times a Day for 1 week, then as needed for congestion. May use Mucinex DM Twice a Day for 1 week, then as needed. OTC cough medications are okay. *Expected Signs/Symptoms: Improvement of breathing. Decreasing cough and congestion. *Notify Physician if: Temp >100.4. Intractable nausea or vomiting. *During Business Hours Contact: Letty Zepeda *After Business Hours Contact: Call [facility] and have Letty Zepeda or her covering provider contacted *Pending Lab/Results: No Pending Lab - Referrals/Follow Up *Referrals/Follow Up: George Rachel MD [Physician] - 04/12/18 10:30 am (Hospiatal follow up for heart disease. ) Letty Zepeda, CLIF [Primary Care Provider] - 03/28/18 (F/U on 03/28/18 as scheduled. ) - Patient Handouts - Dismissal Complete Discharge Instructions are:: Complete Physician Narrative - Narrative Physician: Shon Freeman MD Attestation Narrative: Date: 03/24/18 Time: 2043 I have independently interviewed & examined patient prior to discharge. See my progress note for details. Medically stable for discharge.
== END 2018-03-24 16:10 | disposition home or self-care (01) | DRG 871 ==
LOC: MED 14:22 → ED 14:22 → MED 17:15
PROVIDERS: ADMIT Hospitalist; ATTEND Hospitalist

== ENCOUNTER 2018-04-09 11:11 | Inpatient (IN) ==
[2018-04-09] MEDS ORDERED: METHYLPREDNISOLONE SOD SUCC 125mg/2ml INJECTION IVP ONE (11:59)
--- NOTE | 2018-04-09 12:00 | Emergency Department Report ---
SOB HPI - General Chief Complaint: Shortness of Breath/Dyspnea Stated Complaint: COPD Time Seen by Provider: 04/09/18 11:35 Source: patient Mode of arrival: EMS Limitations: no limitations - History of Present Illness Patient is brought to the ED by EMS with complaints of dyspneaa. Patient is currently incarcerated due to a parole violation. Prior to being incarcerated , patient was in treatment at [facility]. hossein has COPD and had smoked heavily prior to being incarcerated . She is on oxygen at [facility] now and also in retirement. She was last seen here on 04/09 and for similar sx and was able to be discharged back to retirement. Patient is bradycardic but this is baseline for her and she does take a beta juan. Her respirations are labored and shallow. Prior records were reviewed and evaluation was done with attempts to not replicate testing done on 04/09 with her last ER visit, however due to patients clinical presentation and failure to respond to attempted treatments of steroids and breathing tx, much of that work up had to be repeated. MD Complaint: shortness of breath Onset (ago): day(s) Context: recent illness Severity: similar to previous episodes Consistency/Duration: constant Relieving factors: nothing Exacerbating factors: exertion Known history of: COPD, PE Associated symptoms: cough, wheezing Treatment prior to arrival: oxygen, bronchodilator - Related Data Home Medications Medication Instructions Recorded Confirmed Isosorbide Mononitrate ER [Imdur] 30 mg PO BID 04/21/17 04/09/18 Levothyroxine Tab [Synthroid] 100 mcg PO ACB 04/21/17 04/09/18 Nitroglycerin Patch [Nitro-Dur 0.2 1 patch TD DAILY 04/21/17 04/09/18 mg/Hr] Simvastatin [Zocor] 40 mg PO HS 06/26/17 04/09/18 Bisoprolol/Hctz 10/6.25 [Ziac] 1 tab PO DAILY 03/04/18 04/09/18 FLUoxetine [Prozac] 20 mg PO HS 03/04/18 04/09/18 Lisinopril [Prinivil] 10 mg PO DAILY 03/04/18 04/09/18 Omeprazole 40 mg PO DAILY 03/04/18 04/09/18 Clopidogrel [Plavix] 75 mg PO DAILY 03/21/18 04/09/18 Dicyclomine [Bentyl] 20 mg PO QID 03/21/18 04/09/18 Nitroglycerin 0.4 mg PO Q5MIN3 PRN 03/21/18 04/09/18 Albuterol Sulfate [Proair Hfa] 2 puff INH Q4H PRN 03/26/18 04/09/18 Tiotropium Handihaler [Spiriva] 1 cap INH DAILY 03/26/18 04/09/18 Previous Rx's Medication Instructions Recorded Aspirin *EC* [Ecotrin] 81 mg PO DAILY tab 03/24/18 DiphenhydrAMINE [Benadryl] 50 mg PO Q6H PRN cap 03/24/18 Guaifenesin/Dm [Mucinex Dm] 1 tab PO BID tab 03/24/18 Albuterol/Ipratropium [Duoneb] 1 unit AEROSOL Q4H #100 vial 03/26/18 Benzonatate [Tessalon Perles] 200 mg PO TID PRN #30 cap 03/26/18 Promethazine + Dm Liq [Phenergan 5 ml PO HS PRN #2 oz 03/26/18 Dm Syrup] levoFLOXacin [Levaquin] 750 mg PO ACB #7 tab 04/02/18 Allergies Allergy/AdvReac Type Severity Reaction Status Date / Time azithromycin Allergy Unknown RASH Verified 04/09/18 11:36 Iodinated Contrast- Oral and Allergy Unknown Verified 04/09/18 11:36 IV Dye Penicillins Allergy Unknown ANAPHYLACTIC Verified 04/09/18 11:36 SHOCK ketorolac AdvReac Unknown VOMITING Verified 04/09/18 11:36 Review of Systems All systems: reviewed and negative except as stated Constitutional: Reports: as per HPI, weakness ENT: Denies: ear pain Cardiovascular: Reports: dyspnea on exertion, orthopnea Respiratory: Reports: as per HPI, cough, dyspnea, wheezes Gastrointestinal: Reports: nausea. Denies: abdominal pain, vomiting, diarrhea Genitourinary: Denies: urgency, dysuria Musculoskeletal: Reports: as per HPI Integumentary: Denies: rash, wounds Neurological: Denies: headache, weakness Psychiatric: Reports: anxiety. Denies: other Hematological/Lymphatic: Denies: easy bleeding, easy bruising Allergic/Immunologic: Denies: facial swelling PFSH Patient Stated Medical History Cerebrovascular Accident Yes Migraine Yes Syncope Yes Dental Problems Yes Angina Yes Cardiac Arrhythmia Yes Hypertension Yes Hypotension Yes Asthma Yes Bronchitis Yes Chronic Obstructive Pulmonary Yes Disease (COPD) Pneumonia Yes Gastroesophageal Reflux Yes Disease Anemia Yes: not sure what kind Shingles Yes: LEFT CHEST Bipolar Disorder Yes Depression Yes Substance Use Disorder Yes: LORTAB, METH Ovarian Cysts Yes Post Menopausal Yes Medical History Updates: Hypertension. Hypothyroidism. Questionable history of left breast cancer with lumpectomy at age 20 and ovarian cancer without surgical treatment also at age 20. Coronary artery disease. Moderate pulmonary hypertension. Asthma. COPD. Recurrent bronchitis. IBS. GERD. PUD. Migraines. Ovarian cyst. CVA with prior left hemiparesis with a reported history of about 9. Strokes. Depression. Anxiety. PTSD. Bipolar affective disorder. Substance abuse Surgical History: Cardiac catheterization with drug-eluting stent [place] [address] Calvillo echocardiogram in 2013 showing an EF of 70%, moderate pulmonary hypertension. Left breast lumpectomy. Facial reconstruction. Partial hysterectomy. Carpal tunnel Release. Tonsillectomy. Surgery for endometriosis 3 Family History Updates: Mother of lymphatic cancer. Father of lung cancer. Several people in her family with diabetes. Son with Crohn's disease - Social History Smoking status: Current every day smoker (trying to cut back) Substance use type: former substance user Alcohol intake frequency: does not drink Current occupational status: retired Physical Exam - General General appearance: alert, anxious, in distress - Normal Exams: Head:: Normocephalic without trauma Eyes:: Pupils are PERRLA w/ EOMI, No scleral icterus, irritation, or foreign bodies noted Dental: No fractured, loose, or missing teeth noted Neck:: Full range of motion, without adenopathy, JVD, bruits or thyromegaly Abdomen:: Bowel sounds positive, soft, non-tender, non-distended, no hepatosplenomegaly, masses or bruits noted Lymphatic:: No lymphadenopathy, or lymphedema noted Musculoskeletal:: No tenderness, or deformity noted, good range of motion, all extremities Integumentary:: No rashes, hives, or bruising noted, hair and nails, without abnormality - Respiratory Respiratory exam: Present: respiratory distress, wheezes, accessory muscle use - Expanded Respiratory Exam Location: Left: wheezes, rhonchi, decreased breath sounds, Right: wheezes, Upper : wheezes, Lower: wheezes, rhonchi, decreased breath sounds Course Course Narrative: Patient has has had breathing treatments x2 and solumedrol. Patient continues to appear dyspneic and tachypneic with resp rates 36-40. Lungs have rhonchi and wheezes throughout. Patient was last seen here on 04/09 and CXR indicated improving pneumonia and lab work was unremarkable. ABGs were done on that day also and did not indicate hypoxia or hypercapnia. Patient was discharged back to retirement at that time. She is on oxygen at 2l/nc and does get breathing tx while in retirement and continues her second round of levaquin since her hospital dismissal for pneumonia around March 23. She had completed her steroids Patients lab today is unremarkable ;D dimer was done one week ago and this was normal. I did repeat D dimer today after patient failed to show improvement with steroids and breathing tx. D dimer today was elevated. She does have hx of PE but states is compliant on plavix. CT scan was done based on d dimer and clinical presentation and this was negative for PE. Patient remained in the ER for over 3 hours without any resolution of sx or source for her sx. Patient is well known to the ER staff here due to prior visits and report that patient does have chronic respiratory difficulty with her visits to the ER, but this time she does appear clinically slightly worse. EKG was done on arrival and this showed no change from last EKG. Troponin was also negative. Dr Parson was paged and I discussed patients case with him. Patients resp rate upon my repeat exams have never been below 30. After 3rd treatment this ER stay , resp rate is 52. Sats on 2l/NC remain above 95. Room air sats checked shortly after arrival indicated sats of 90%. Patient has no acute source identified for her sx, but she shows no improvement with respiratory rate or effort despite treatment and I do not feel that discharging patient back to the retirement is not appropriate I did discuss patients case with the hospitalist, Dr Parson and he agrees to admit patient Vital Signs Temperature 97.8 F 04/09/18 11:11 Pulse Rate 49 L 04/09/18 11:11 Respiratory Rate 32 H 04/09/18 11:11 Blood Pressure 101/58 04/09/18 11:11 Pulse Oximetry 100 04/09/18 11:11 Temperature 97.8 F 04/09/18 11:11 Pulse Rate 49 L 04/09/18 11:11 Respiratory Rate 32 H 04/09/18 11:11 Blood Pressure 101/58 04/09/18 11:11 Pulse Oximetry 100 04/09/18 11:11 Shortness of Breath/Dyspnea - Differential Diagnosis Likely: acute exacerbation of chronic obstructive airways disease, congestive heart failure, community acquired pneumonia, pulmonary embolism - Medical Records Attestation: I reviewed the patient's medical records. - Lab Data Attestation: I reviewed the patient's lab results. Result diagrams: 04/09/18 11:35 04/09/18 11:35 - Radiology Data Attestation: I reviewed the patient's radiology results. - Core Measures AMI core measures followed: Yes Disposition Clinical Impression: COPD exacerbation Dyspnea Qualifiers: Dyspnea type: unspecified Qualified Code(s): R06.00 - Dyspnea, unspecified Disposition: 02 To [facility] Condition: Stable Time of Disposition: 16:25 - Seen By: midlevel and physician
[2018-04-09] MEDS ORDERED: ALBUTEROL/IPRATROPIUM 2.5mg-0.5mg/3ml NEB AEROSOL ONE ×2 (12:01→15:38)
[2018-04-09] MEDS: SALINE FLUSH 10ml SYRINGE IVF PRN (12:19)
[2018-04-09] MEDS ORDERED: DiphenhydrAMINE 50 MG/ML INJECTION IVP ONE (13:21)
[2018-04-09] MEDS ORDERED: SALINE FLUSH 10ml SYRINGE ONE (13:33)
[2018-04-09] MEDS ORDERED: IOHEXOL 350mg/ml 75ml INJECTION ONE (13:33)
[2018-04-09 17:02] VITALS: BMI 26.4
[2018-04-09] MEDS ORDERED: ALBUTEROL/IPRATROPIUM 2.5mg-0.5mg/3ml NEB AEROSOL PRN ×2 (17:16→17:51)
[2018-04-09] MEDS ORDERED: PROMETHAZINE DM PO PRN (17:16)
[2018-04-09] MEDS ORDERED: NITROGLYCERIN 0.4 MG SUBLINGUAL TABLET SL PRN (17:16)
[2018-04-09] MEDS ORDERED: ONDANSETRON 4 MG/2 ML INJECTION IVP PRN (17:16)
[2018-04-09] MEDS ORDERED: DiphenhydrAMINE 25 MG CAPSULE PO PRN (17:16)
--- NOTE | 2018-04-09 17:19 | History & Physical Report ---
History of Present Illness Date: 04/09/18 Chief complaint: acute respiratory failure with hypercapnia, COPD exacerbation HPI: Sulema Suarez is a 63-year-old female patient of Letty Zepeda APRN, who presented to [facility] emergency department for evaluation of increased dyspnea. She was recently admitted to [facility] on 03/23-03/24 for acute dyspnea and treated for pneumonia with Levaquin. Since her discharge, she has been seen at [facility] ED 6 times as well as multiple visits to her PCP primarily for dyspnea as well as chest pain and abdominal pain. While hospitalized, she was started on Levaquin and discharged home on Levaquin which she reports she completed. Due to her persistent symptoms, she was started on a second round of Levaquin on 04/07 by the ED. Despite treatment, she continued to have a cough which she reports is occasionally productive and increased dyspnea. She denies any known fevers, chills, abdominal pain, nausea, vomiting or dysuria. She does report chest tightness and pain with coughing. Following her evaluation in the ED on 04/07, [facility], where she currently resides and is accompanied today by an officer. Upon arrival to the ED today, she is noted to be afebrile and tachypneic. She reports that she has been on 2.5L oxygen at home since September 2017 following a bout of H1N1 and was noted to be hypoxic on room air at 88% while in the ED. Labs were obtained and revealed leukocytosis (WBC 12.3) and mild anemia (Hgb 11.7). CMP was unremarkable. Troponin was <0.012. D-dimer was noted to be slightly elevated at [address] chest revealed pulmonary air space consolidation in the right middle and lingular spaces which may represent pneumonia, atelectasis or a combination of both and no PE. Serial chest x-rays over the past 2 weeks revealed improving lower lobe pneumonias. She received DuoNeb treatments x 2 with Solu-Medrol 125mg IV x 1 dose and Benadryl 25mg x [address] Parson was consulted and she was accepted into observation status for further evaluation and treatment. Review of Systems All systems PM: 10-point ROS was reviewed, no additional remarkable complaints except - Constitutional Constitutional: Present: weakness (generalized). Absent: chills, fever(s), night sweats - EENMT Eyes: Absent: change in vision, photophobia Ears: Absent: ear pain Balance: Absent: falling to one side Nose: Present: allergies. Absent: nosebleeds Mouth/Throat: Present: dry mouth. Absent: sore throat, changes in swallowing - Cardiovascular Cardiovascular: Present: dyspnea on exertion. Absent: chest pain, palpitations , syncope, orthopnea, edema Vascular: Absent: pallor of an extermity, pedal edema, unilateral swelling - Respiratory Respiratory: Present: cough, dyspnea, dyspnea on exertion, wheezing, pain on inspiration, chest congestion. Absent: hemoptysis - Gastrointestinal Gastrointestinal: Absent: abdominal pain, diarrhea, nausea, vomiting - Genitourinary Genitourinary: Absent: dysuria, flank pain, hematuria - Musculoskeletal Musculoskeletal: Present: muscle weakness. Absent: back pain, deformity - Integumentary/Breasts Integumentary: Absent: rash - Neurological Neurological: Present: weakness. Absent: abnormal gait, confusion, convulsions , dizziness, focal weakness - Psychiatric Psychiatric: Present: anxiety, depression - Endocrine Endocrine: Absent: flushing, palpitations - Hematologic/Lymphatic Hematologic/Lymphatic: Present: easy bruising - Allergic/Immunologic Allergic/Immunologic: Present: seasonal rhinorrhea Past Medical History Medical History Updates: Hypertension. Hypothyroidism. Questionable history of left breast cancer with lumpectomy at age 20 and ovarian cancer without surgical treatment also at age 20. Coronary artery disease. Moderate pulmonary hypertension. Asthma. COPD. Recurrent bronchitis. IBS. GERD. PUD. Migraines. Ovarian cyst. CVA with prior left hemiparesis with a reported history of about 9. Strokes. Depression. Anxiety. PTSD. Bipolar affective disorder. Substance abuse Surgical History: Cardiac catheterization with drug-eluting stent in [address] Calvillo. Echocardiogram 03/23/18 - normal LV systolic function, EF 64 %, moderate aortic stenosis, LVH, mild TR with moderate pulmonary hypertension ~ 53. Left breast lumpectomy. Facial reconstruction. Partial hysterectomy. Carpal tunnel Release. Tonsillectomy. Surgery for endometriosis 3 Family History Updates: Mother - lymphatic cancer. Father - lung cancer. Son - Crohn's disease. Several people in family with diabetes. Family History: As Above - Social History Smoking status: Current every day smoker (trying to cut back) Substance use type: former substance user Alcohol intake frequency: does not drink Housing: other (Currently in [facility]) Household members: none Current occupational status: unemployed Does patient use chewing tobacco?: No Social history: Patient currently in [facility]. PCP - Dr. Letty Zepeda. Cardio - Dr. Rachel. Medications Home Medications Medication Instructions Recorded Confirmed Type Isosorbide Mononitrate ER [Imdur] 30 mg PO BID 04/21/17 04/09/18 History Levothyroxine Tab [Synthroid] 100 mcg PO ACB 04/21/17 04/09/18 History Nitroglycerin Patch [Nitro-Dur 0.2 1 patch TD DAILY 04/21/17 04/09/18 History mg/Hr] Simvastatin [Zocor] 40 mg PO HS 06/26/17 04/09/18 History Bisoprolol/Hctz 08/19.25 [Ziac] 1 tab PO DAILY 03/04/18 04/09/18 History FLUoxetine [Prozac] 20 mg PO HS 03/04/18 04/09/18 History Lisinopril [Prinivil] 10 mg PO DAILY 03/04/18 04/09/18 History Omeprazole 40 mg PO DAILY 03/04/18 04/09/18 History Clopidogrel [Plavix] 75 mg PO DAILY 03/21/18 04/09/18 History Dicyclomine [Bentyl] 20 mg PO QID 03/21/18 04/09/18 History Nitroglycerin 0.4 mg PO Q5MIN3 PRN 03/21/18 04/09/18 History Aspirin *EC* [Ecotrin] 81 mg PO DAILY tab 03/24/18 04/09/18 Rx DiphenhydrAMINE [Benadryl] 50 mg PO Q6H PRN cap 03/24/18 04/09/18 Rx Guaifenesin/Dm [Mucinex Dm] 1 tab PO BID tab 03/24/18 04/09/18 Rx Albuterol Sulfate [Proair Hfa] 2 puff INH Q4H PRN 03/26/18 04/09/18 History Albuterol/Ipratropium [Duoneb] 1 unit AEROSOL Q4H #100 vial 03/26/18 04/09/18 Rx Benzonatate [Tessalon Perles] 200 mg PO TID PRN #30 cap 03/26/18 04/09/18 Rx Promethazine + Dm Liq [Phenergan 5 ml PO HS PRN #2 oz 03/26/18 04/09/18 Rx Dm Syrup] Tiotropium Handihaler [Spiriva] 1 cap INH DAILY 03/26/18 04/09/18 History levoFLOXacin [Levaquin] 750 mg PO ACB #7 tab 04/02/18 04/09/18 Rx Allergies Allergy/AdvReac Type Severity Reaction Status Date / Time azithromycin Allergy Unknown RASH Verified 04/09/18 11:36 Iodinated Contrast- Oral and Allergy Unknown Verified 04/09/18 11:36 IV Dye Penicillins Allergy Unknown ANAPHYLACTIC Verified 04/09/18 11:36 SHOCK ketorolac AdvReac Unknown VOMITING Verified 04/09/18 11:36 Exam Vital Signs: Temperature 96.1 F L 04/09/18 17:01 Pulse Rate 52 L 04/09/18 17:01 Respiratory Rate 20 04/09/18 17:01 Blood Pressure 105/69 04/09/18 17:01 Pulse Oximetry 98 04/09/18 17:01 Telemetry Rhythm: Sinus Rhythm Height/Weight/BMI: Height 5 ft 1 in Weight 139 lb 8.842 oz Body Mass Index 26.4 Comments: Patient initially seen in ED, room 6, with security present. - Constitutional Present: mild distress, well nourished, well developed, cooperative - Routine HEENT Exam Head: Present: normocephalic, atraumatic Eye: Present: PERRL. Absent: conjunctival icterus ENT: Present: mucous membranes moist, oropharynx clear - Routine Neck Exam Present: supple, full ROM, trachea midline - Routine Chest/Breast/Axilla Exam Chest wall: Absent: pacemaker - Routine Respiratory Exam Present: accessory muscle use, dyspnea, decreased breath sounds, prolonged expiratory phase, respiratory distress (mild-moderate), rhonchi, wheezes, diminished air movement - Routine Cardiovascular Exam Present: RRR, S1, S2 - Routine Abdominal Exam Present: soft, normoactive bowel sounds, non tender - Routine Extremities Exam Present: no edema, full ROM, pulses intact - Routine Back/Spine/Pelvis Exam Back/Spine: Present: full ROM. Absent: vertebral tenderness - Routine Skin Exam Present: intact, dry, warm Comments: Afebrile. - Routine Neurological Exam Present: alert, oriented X3, moving all extremities, hearing grossly intact, normal speech - Routine Psychiatric Exam Present: cooperative Results - Labs CBC & Chem 7: 04/09/18 11:35 04/09/18 11:35 Assessment and Plan Assessment and Plan: Assessment: Acute on chronic respiratory failure with hypoxia and hypercapnia. SIRS with questionable sepsis - source unidentified though most likely pulmonary given recent pneumonia which appeared to be improving based on serial CXR, leukocytosis, tachypnea, hypoxia. COPD exacerbation. Anemia, chronic. Oxygen dependence - baseline 2-3L. Hypertension Hypothyroidism Questionable history of left breast cancer with lumpectomy at age 20 and ovarian cancer without surgical treatment also at age 20. Coronary artery disease Moderate aortic stenosis Mild mitral regurgitation Moderate pulmonary hypertension Asthma IBS GERD PUD Migraines CVA with prior left hemiparesis with a reported history of about 9 Strokes Depression Anxiety PTSD Bipolar affective disorder Substance abuse Tobacco dependency. Plan - 04/09/18: Admit patient to observation status under the care of Dr. Parson. Given positive SIRS criteria with questionable sepsis due to recent pneumonia, will obtain blood cultures, serial lactates, procalcitonin for further evaluation. CT chest negative for PE and revealed small consolidation in costophrenic angles as well as consolidation in right middle lobe and lingular segment - unclear if resolving pneumonia or acute. Serial chest x-rays over the past 2 weeks revealed improving pneumonia. Continue DuoNeb treatments QID and PRN as well as Pulmicort BID. Acapella and Mucinex for mucolytic effect. Will try and obtain sputum culture. Respiratory panel was negative. Initiate prednisone 40mg daily for pulmonary inflammation. Patient given Solu- medrol 125mg IV in ED. Will continue home levaquin for empiric pulmonary coverage though may consider broadening treatment given persistent symptoms despite 2 round of Levaquin outpatient. Will discuss with Dr. Parson. Continue oxygen to maintain SAO2 between 90-96%, weaning as able. Monitor closely on telemetry with continuous pulse oximetry. Will continue home medications. Consider pulmonary consult given pulmonary disease. Will recheck labs in AM to monitor blood counts, electrolytes and renal function. Upon discharge, patient's care will be returned to Letty Zepeda APRN, at [facility]. Patient requests to be a DNR. DVT Prophylaxis: SCD's GI Prophylaxis: Omeprazole Resuscitation Status: Do Not Resuscitate - Time spent with patient Time with patient PN: 70 minutes - Physician Narrative Physician: other (Dr. Parson) Narrative: Date: 04/09/18 Time: 1848 S: Pt reports sob but denies any cp, n/v/d. Reports she's a bit anxious. O: Lungs: CTAB without wheezes, rhonci A/p: Pt likely anxious, unlikely to be another pna, will cont. abx and steroid tx and monitor. Hospital Course Summary Disclaimer: The visit summary below is not to be considered part of the above Progress Note. Hospital Course: Plan - 04/09/18: Admit patient to observation status under the care of Dr. Parson. Given positive SIRS criteria with questionable sepsis due to recent pneumonia, will obtain blood cultures, serial lactates, procalcitonin for further evaluation. CT chest negative for PE and revealed small consolidation in costophrenic angles as well as consolidation in right middle lobe and lingular segment - unclear if resolving pneumonia or acute. Serial chest x-rays over the past 2 weeks revealed improving pneumonia. Continue DuoNeb treatments QID and PRN as well as Pulmicort BID. Acapella and Mucinex for mucolytic effect. Will try and obtain sputum culture. Respiratory panel was negative. Initiate prednisone 40mg daily for pulmonary inflammation. Patient given Solu- medrol 125mg IV in ED. Will continue home levaquin for empiric pulmonary coverage though may consider broadening treatment given persistent symptoms despite 2 round of Levaquin outpatient. Will discuss with Dr. Parson. Continue oxygen to maintain SAO2 between 90-96%, weaning as able. Monitor closely on telemetry with continuous pulse oximetry. Will continue home medications. Consider pulmonary consult given pulmonary disease. Will recheck labs in AM to monitor blood counts, electrolytes and renal function. Upon discharge, patient's care will be returned to Letty Zepeda APRN, at [facility]. Patient requests to be a DNR.
[2018-04-09] MEDS: NS 1,000 ML IV SCH (17:33)
[2018-04-09] MEDS: ALBUTEROL/IPRATROPIUM 2.5mg-0.5mg/3ml NEB AEROSOL SCH (19:50)
[2018-04-09] MEDS: BUDESONIDE INH.SOLN 0.5mg/2ml NEB AEROSOL SCH (19:50)
[2018-04-09] MEDS: ACETAMINOPHEN 325 MG TABLET PO PRN (20:18)
[2018-04-09] MEDS ORDERED: DICYCLOMINE 20mg TABLET PO SCH (21:00)
[2018-04-09] MEDS ORDERED: ISOSORBIDE MONONITRATE ER 30 MG TABLET PO SCH (21:00)
[2018-04-09] MEDS: HYDROCODONE/APAP 5mg/325mg TABLET PO PRN (21:42)
[2018-04-09] MEDS ORDERED: NS 1,000 ML IV ONE (23:14)
[2018-04-09] MEDS: GUAIFENESIN/D-METHORPHAN 600mg/30mg TABLET PO SCH (23:30)
[2018-04-09] MEDS: FLUoxetine 20 MG CAPSULE PO SCH (23:31)
[2018-04-09] MEDS: SIMVASTATIN 40 MG TABLET PO SCH (23:32)
[2018-04-10] MEDS: HYDROCODONE/APAP 5mg/325mg TABLET PO PRN ×4 (04:23→21:58)
[2018-04-10] MEDS: NS 1,000 ML IV SCH ×2 (06:26→17:28)
[2018-04-10] MEDS: LEVOFLOXACIN 750 MG TABLET PO SCH (06:33)
[2018-04-10] MEDS: LEVOTHYROXINE 100 MCG TABLET PO SCH (06:33)
[2018-04-10] MEDS: ISOSORBIDE MONONITRATE ER 30 MG TABLET PO SCH ×2 (07:01→17:27)
[2018-04-10] MEDS: OMEPRAZOLE 20 MG CAPSULE PO SCH (07:01)
[2018-04-10] MEDS: BUDESONIDE INH.SOLN 0.5mg/2ml NEB AEROSOL SCH ×2 (07:14→19:14)
[2018-04-10] MEDS: ALBUTEROL/IPRATROPIUM 2.5mg-0.5mg/3ml NEB AEROSOL SCH ×6 (07:14→22:57)
[2018-04-10] MEDS: SENNA + DOCUSATE TABLET PO PRN ×2 (08:37→16:31)
[2018-04-10] MEDS: ASPIRIN *EC* 81 MG TABLET PO SCH (08:37)
[2018-04-10] MEDS: PredniSONE 20 MG TABLET PO SCH (08:37)
[2018-04-10] MEDS: POLYETHYL GLYCOL 3350 17gm PACKET PO SCH (08:37)
[2018-04-10] MEDS: DICYCLOMINE 20mg TABLET PO SCH ×4 (08:37→20:11)
[2018-04-10] MEDS: CLOPIDOGREL 75 MG TABLET PO SCH (08:37)
[2018-04-10] MEDS: LISINOPRIL 10 MG TABLET PO SCH (08:37)
[2018-04-10] MEDS: GUAIFENESIN/D-METHORPHAN 600mg/30mg TABLET PO SCH ×2 (08:38→20:11)
[2018-04-10] MEDS: NITROGLYCERIN 0.2 MG/HR PATCH TD SCH (08:39)
[2018-04-10] MEDS: BENZONATATE 200 MG CAPSULE PO PRN ×2 (08:39→17:27)
--- NOTE | 2018-04-10 09:47 | CT Scan Report ---
Indication: dyspnea, PROCEDURE: CT angio pulm emboli: Encounter: Initial Comparison: None Technique: Axial CT pulmonary angiographic phase images were performed through the chest after the administration of intravenous contrast. Coronal and Sagittal MIP reconstructed images were created and reviewed. Automated Exposure Control and Iterative Reconstruction dose reducing techniques were utilized. Contrast: Omnipaque 350 48 mL Findings: Pulmonary arteries: Exam is gastric to the subsegmental pulmonary arterial level. No filling defects identified to suggest a pulmonary embolus. Other findings: No pneumothorax. Lingular and right middle lobe scarring. Mild airspace disease in the right lower lobe. No pleural effusion. The central airways are patent. No axillary adenopathy. Calcified mediastinal granulomas. Heart is mildly enlarged with trace pericardial effusion. The upper abdomen shows no acute findings. Impression: 1. No pulmonary embolus. 2. Right lower lobe airspace disease could represent atelectasis or developing pneumonia. There is a preliminary report by [facility]. .
--- NOTE | 2018-04-10 09:49 | Progress Note ---
- Date 04/10/18 Subjective: F/U: Acute on chronic respiratory failure with hypoxia and hypercapnia, COPD. Sulema is seen this morning in conjunction with Dr. Parson. She is resting in bed and immediately upon our arrival, she is noted to become more tachypneic. She reports that she is feeling a little better today but continues to complain of severe dyspnea. She became tearful on exam and admits that she often becomes very anxious which worsens her dyspnea because she feels like she can't breath. She denies any current chest pain, abdominal pain, nausea, vomiting or dysuria. Labs today revealed resolved leukocytosis (WBC 5.6) with stable anemia (Hgb 10.2) and new hyperglycemia most likely secondary to steroids. Initial lactate was 4.2 and has decreased to 1.2 today. Respiratory panel was negative. Due to her persistent hypercapnia and dyspnea, she was changed to inpatient status. Objective Vital signs: Temperature 96.8 F 04/10/18 07:16 Pulse Rate 63 04/10/18 07:16 Respiratory Rate 16 04/10/18 07:16 Blood Pressure 117/76 04/10/18 07:16 Pulse Oximetry 92 04/10/18 07:16 Height/Weight/BMI: Height 5 ft 1 in Weight 143 lb 15.39 oz Body Mass Index 26.4 Comments: Resting in bed, watching TV. Becomes very anxious on exam. - Constitutional Present: mild distress, well nourished, well developed, cooperative - Routine HEENT Exam Head: Present: normocephalic, atraumatic Eye: Present: PERRL. Absent: conjunctival icterus ENT: Present: mucous membranes moist, oropharynx clear - Routine Respiratory Exam Present: accessory muscle use, decreased breath sounds, prolonged expiratory phase, respiratory distress (mild-moderate), diminished air movement Comments: Increased dyspnea with hypercapnia on exam; course breath sounds; occasional non -productive cough; conversational dyspnea despite being on O2. - Routine Cardiovascular Exam Present: RRR, S1, S2 - Routine Abdominal Exam Present: soft, normoactive bowel sounds, non tender - Routine Extremities Exam Present: no edema, full ROM, pulses intact - Routine Back/Spine/Pelvis Exam Back/Spine: Present: full ROM. Absent: vertebral tenderness - Routine Musculoskeletal Exam Musculoskeletal: Present: no clubbing or cyanosis, moving extremities well - Routine Skin Exam Present: intact, dry, warm Comments: Afebrile. - Routine Neurological Exam Present: alert, moving all extremities, hearing grossly intact, normal speech - Routine Lymphatic Exam Lymphatic: Absent: lymphedema - Routine Psychiatric Exam Present: cooperative, anxious Results - Labs CBC & Chem 7: 04/10/18 04:01 04/10/18 04:01 Microbiology Results: Microbiology 04/09/18 18:01 Peripheral/Iv Start Blood Culture - Preliminary Culture Initiated - Results Pending 04/09/18 18:11 Peripheral/Iv Start Blood Culture - Preliminary Culture Initiated - Results Pending 04/09/18 18:12 Sputum, Expectorated Gram Stain - Preliminary 04/09/18 18:12 Sputum, Expectorated Sputum Culture - Preliminary Culture Initiated - Results Pending Assessment and Plan Assessment and Plan: Assessment: Acute on chronic respiratory failure with hypoxia and hypercapnia. SIRS with questionable sepsis - source unidentified though most likely pulmonary given recent pneumonia which appeared to be improving based on serial CXR, leukocytosis, tachypnea, hypoxia. COPD exacerbation. Anemia, chronic. Oxygen dependence - baseline 2-3L. Hypertension Hypothyroidism Questionable history of left breast cancer with lumpectomy at age 20 and ovarian cancer without surgical treatment also at age 20. Coronary artery disease Moderate aortic stenosis Mild mitral regurgitation Moderate pulmonary hypertension Asthma IBS GERD PUD Migraines CVA with prior left hemiparesis with a reported history of about 9 Strokes Depression Anxiety PTSD Bipolar affective disorder Substance abuse Tobacco dependency. 04/10: Patient appears to be doing better though does continues to have hypercapnia, though likely due to a component of anxiety. Will change to inpatient status given her persistent respiratory failure and COPD exacerbation. Initial lactate was elevated at 4.2 and decreased to 1.2. She remains afebrile. Procalcitonin <0.05. Will continue home Levaquin for empiric antimicrobial coverage of pulmonary pathogens. Blood cultures and sputum culture results pending. Will consults Dr. Pate for additional pulmonary evaluation and treatment recommendations. Appreciate his time and expertise. Continue DuoNeb treatments QID and PRN as well as Pulmicort BID. Acapella and Mucinex for mucolytic effect. Continue prednisone 40mg daily for pulmonary inflammation. Patient given Solu- medrol 125mg IV in ED. Continue oxygen to maintain SAO2 between 90-96%, weaning as able. Monitor closely on telemetry with continuous pulse oximetry. Will start claritin given history of asthma. Will recheck labs in AM to monitor blood counts, electrolytes and renal function. DVT Prophylaxis: SCD's GI Prophylaxis: Omeprazole Resuscitation Status: Do Not Resuscitate - Time spent with patient Time with patient PN: 30 minutes - Physician Narrative Physician: other (Dr. Parson) Narrative: Date: 04/10/18 Time: 1256 S: Pt feels a bit better than yesterday, feels sob but mostly chronic. Denies any cp, n/v/d, f/c. Cough is dry. O: Gen: AAOx3, no distress Lungs: decreased breath sounds but no crackles A/P: Likely chronic lung disease getting worse, but will finish out abx course that ED started a few days ago and also cont. steroids, will consult pulm since pt was planning on seeing them tomorrow as outpatient. Hospital Course Summary Disclaimer: The visit summary below is not to be considered part of the above Progress Note. Hospital Course: Plan - 04/09/18: Admit patient to observation status under the care of Dr. Parson. Given positive SIRS criteria with questionable sepsis due to recent pneumonia, will obtain blood cultures, serial lactates, procalcitonin for further evaluation. CT chest negative for PE and revealed small consolidation in costophrenic angles as well as consolidation in right middle lobe and lingular segment - unclear if resolving pneumonia or acute. Serial chest x-rays over the past 2 weeks revealed improving pneumonia. Continue DuoNeb treatments QID and PRN as well as Pulmicort BID. Acapella and Mucinex for mucolytic effect. Will try and obtain sputum culture. Respiratory panel was negative. Initiate prednisone 40mg daily for pulmonary inflammation. Patient given Solu- medrol 125mg IV in ED. Will continue home levaquin for empiric pulmonary coverage though may consider broadening treatment given persistent symptoms despite 2 round of Levaquin outpatient. Will discuss with Dr. Parson. Continue oxygen to maintain SAO2 between 90-96%, weaning as able. Monitor closely on telemetry with continuous pulse oximetry. Will continue home medications. Consider pulmonary consult given pulmonary disease. Will recheck labs in AM to monitor blood counts, electrolytes and renal function. Upon discharge, patient's care will be returned to Letty Zepeda APRN, at [facility]. Patient requests to be a DNR. 04/10: Patient appears to be doing better though does continues to have hypercapnia, though likely due to a component of anxiety. Will change to inpatient status given her persistent respiratory failure and COPD exacerbation. Initial lactate was elevated at 4.2 and decreased to 1.2. She remains afebrile. Procalcitonin <0.05. Will continue home Levaquin for empiric antimicrobial coverage of pulmonary pathogens. Blood cultures and sputum culture results pending. Will consults Dr. Pate for additional pulmonary evaluation and treatment recommendations. Appreciate his time and expertise. Continue DuoNeb treatments QID and PRN as well as Pulmicort BID. Acapella and Mucinex for mucolytic effect. Continue prednisone 40mg daily for pulmonary inflammation. Patient given Solu- medrol 125mg IV in ED. Continue oxygen to maintain SAO2 between 90-96%, weaning as able. Monitor closely on telemetry with continuous pulse oximetry. Will recheck labs in AM to monitor blood counts, electrolytes and renal function.
[2018-04-10] MEDS: NICOTINE 14 MG PATCH TD SCH (10:03)
[2018-04-10] MEDS: LORATADINE 10 MG TABLET PO SCH (10:27)
[2018-04-10] MEDS: ACETAMINOPHEN 325 MG TABLET PO PRN ×2 (12:57→20:40)
--- NOTE | 2018-04-10 15:40 | Pulmonology Consult Note ---
<Carolyn Herrera D - Last Filed: 04/10/18 15:28> History of Present Illness Consult date: 04/10/18 Requesting physician: Milena Parson Reason for consult: dyspnea, cough, COPD Chief complaint: SOB History of present illness: This is a 63 yo female with a Hx of smoking, COPD, HTN, CAD, Depression and anxiety. Was origionally supposed to see us in office tomorrow for a consult. She states she was previously in the Hospital 03/23/18 for pneumonia and was treated with BT's and Levaquin and sent home the next day. She was sent home on antibiotics which she states she finished. She was on spiriva daily and A/A QID and feels she has never recovered. She has reportedly been seen in the [facility] 6 times as well as multiple visits to her PCP primarily for dyspnea as well as chest pain and abdominal pain. She was started on a second round of Levaquin by the [facility] secondary to her persistent symptoms. She has continued to have a cough which she reports is occasionally productive and increased dyspnea. She denies any known fevers, chills, abdominal pain, nausea, vomiting or dysuria. She does report chest tightness and pain with coughing. Due to these symptoms she was brought to the [facility] and was noted to be afebrile and tachypneic, she was 88% on RA in the ED, states she usually uses O2 at 2.5L. Labs were obtained and revealed leukocytosis (WBC 12.3) and mild anemia (Hgb 11.7). CMP was unremarkable. Troponin was <0.012. D-dimer was noted to be slightly elevated at [address] chest revealed RLL infiltrates with no PE. We have been consulted for her pulmonary issues and appreciate the consult. Review of Systems - Constitutional Constitutional: Absent: anorexia, fatigue, fever(s) - EENT Eyes: Present: change in vision. Absent: blurry vision, diplopia Nose: Absent: change in smell, pain Mouth/Throat: Present: mucosa moist. Absent: mucosa dry - Cardiovascular Cardiovascular: Present: dyspnea on exertion. Absent: syncope, edema - Respiratory Respiratory: Present: cough, dyspnea, dyspnea on exertion, wheezing, chest congestion. Absent: hemoptysis - Gastrointestinal Gastrointestinal: Absent: abdominal pain, change in bowel habits - Musculoskeletal Musculoskeletal: Absent: abnormal gait, arthralgias, deformity - Integumentary/Breasts Integumentary: Absent: alopecia, change in hair, change in nails - Neurological Neurological: Absent: abnormal movements, abnormal speech, confusion - Psychiatric Psychiatric: Present: anxiety. Absent: abnormal sleep pattern - Endocrine Endocrine: Absent: cold intolerance, excessive sweating - Hematologic/Lymphatic Hematologic/Lymphatic: Absent: easy bleeding, easy bruising, lymphadenopathy - Allergic/Immunologic Allergic/Immunologic: Absent: tongue swelling, throat swelling [facility] Medical History Updates: Hypertension. Hypothyroidism. Questionable history of left breast cancer with lumpectomy at age 20 and ovarian cancer without surgical treatment also at age 20. Coronary artery disease. Moderate pulmonary hypertension. Asthma. COPD. Recurrent bronchitis. IBS. GERD. PUD. Migraines. Ovarian cyst. CVA with prior left hemiparesis with a reported history of about 9. Strokes. Depression. Anxiety. PTSD. Bipolar affective disorder. Substance abuse Surgical History: Cardiac catheterization with drug-eluting stent [place] [address] Calvillo echocardiogram in 2013 showing an EF of 70%, moderate pulmonary hypertension. Left breast lumpectomy. Facial reconstruction. Partial hysterectomy. Carpal tunnel Release. Tonsillectomy. Surgery for endometriosis 3 Family History Updates: Mother of lymphatic cancer. Father of lung cancer. Several people in her family with diabetes. Son with Crohn's disease - Social History Smoking status: Current every day smoker (trying to cut back) Substance use type: former substance user Alcohol intake frequency: does not drink Housing: other (Currently in nursing home) Household members: none Current occupational status: retired Does patient use chewing tobacco?: No Medications Home Medications Medication Instructions Recorded Confirmed Type Isosorbide Mononitrate ER [Imdur] 30 mg PO BID 04/21/17 04/09/18 History Levothyroxine Tab [Synthroid] 100 mcg PO ACB 04/21/17 04/09/18 History Nitroglycerin Patch [Nitro-Dur 0.2 1 patch TD DAILY 04/21/17 04/09/18 History mg/Hr] Simvastatin [Zocor] 40 mg PO HS 06/26/17 04/09/18 History Bisoprolol/Hctz 10/6.25 [Ziac] 1 tab PO DAILY 03/04/18 04/09/18 History FLUoxetine [Prozac] 20 mg PO HS 03/04/18 04/09/18 History Lisinopril [Prinivil] 10 mg PO DAILY 03/04/18 04/09/18 History Omeprazole 40 mg PO DAILY 03/04/18 04/09/18 History Clopidogrel [Plavix] 75 mg PO DAILY 03/21/18 04/09/18 History Dicyclomine [Bentyl] 20 mg PO QID 03/21/18 04/09/18 History Nitroglycerin 0.4 mg PO Q5MIN3 PRN 03/21/18 04/09/18 History Aspirin *EC* [Ecotrin] 81 mg PO DAILY tab 03/24/18 04/09/18 Rx DiphenhydrAMINE [Benadryl] 50 mg PO Q6H PRN cap 03/24/18 04/09/18 Rx Guaifenesin/Dm [Mucinex Dm] 1 tab PO BID tab 03/24/18 04/09/18 Rx Albuterol Sulfate [Proair Hfa] 2 puff INH Q4H PRN 03/26/18 04/09/18 History Albuterol/Ipratropium [Duoneb] 1 unit AEROSOL Q4H #100 vial 03/26/18 04/09/18 Rx Benzonatate [Tessalon Perles] 200 mg PO TID PRN #30 cap 03/26/18 04/09/18 Rx Promethazine + Dm Liq [Phenergan 5 ml PO HS PRN #2 oz 03/26/18 04/09/18 Rx Dm Syrup] Tiotropium Handihaler [Spiriva] 1 cap INH DAILY 03/26/18 04/09/18 History levoFLOXacin [Levaquin] 750 mg PO ACB #7 tab 04/02/18 04/09/18 Rx Allergies Allergy/AdvReac Type Severity Reaction Status Date / Time azithromycin Allergy Unknown RASH Verified 04/09/18 11:36 Iodinated Contrast- Oral and Allergy Unknown Verified 04/09/18 11:36 IV Dye Penicillins Allergy Unknown ANAPHYLACTIC Verified 04/09/18 11:36 SHOCK ketorolac AdvReac Unknown VOMITING Verified 04/09/18 11:36 Exam Vital signs: Temperature 97.2 F 04/10/18 12:00 Pulse Rate 66 04/10/18 12:00 Respiratory Rate 20 04/10/18 15:03 Blood Pressure 118/65 04/10/18 12:00 Pulse Oximetry 97 04/10/18 15:03 - Constitutional mild distress, average body habitus, cooperative - Routine HEENT Exam Head: Present: normocephalic, atraumatic Eye: Present: EOMI, PERRL - Routine Neck Exam Present: supple, full ROM, trachea midline - Routine Respiratory Exam Present: decreased breath sounds, prolonged expiratory phase, rhonchi, wheezes Comments: faint exp wheezes, rhonchi - Routine Cardiovascular Exam Present: RRR, S1, S2, no murmur - Routine Abdominal Exam Present: soft, normoactive bowel sounds - Routine Extremities Exam Present: non tender, full ROM. Absent: cyanosis, edema - Routine Back/Spine/Pelvis Exam Back/Spine: Present: full ROM - Routine Skin Exam Present: intact, dry - Routine Neurological Exam Present: alert, oriented X3, CN II-XII intact - Routine Psychiatric Exam Present: normal affect, normal thought process Results - Laboratory Findings CBC and BMP: 04/10/18 04:01 04/10/18 04:01 PT/INR, D-dimer D-Dimer 309 NG/ML (0-230) H 04/09/18 11:35 - Diagnostic Findings CT scan - chest: image reviewed (No PE, + RLL infiltrates with LLL infiltrates) Assessment and Plan - Assessment and Plan Acute on Chronic Hypoxic Respiratory Failure COPD exacerbation Pneumonia Tobaccoism Plan: Pt currently on 1.5L per NC. On BT's with pulmicort BID, AlA QID and prednisone 40mg daily. On levaquin daily, sputum with moderate WBC, few GPC, few GNR, await final cultures. WBC 12.5>5.6, lactate 4.2>1.2. RVP NTD, BC's pending. Would keep on current treatments but will increase A/A to QID. Encourage use of Acapella and IS, follow CXR. Likely needs more then spiriva at home and also needs to sustain from smoking. Once discharged will need a f/u OP with PFT in a month. - Time Spent With Patient Total time spent is greater than 50% in coordination of care (as documented) at patient's floor/unit and/or counseling patient: 25 - 35 minutes <Scott Pate - Last Filed: 04/11/18 13:10> Exam Vital signs: Temperature 96.7 F L 04/11/18 11:06 Pulse Rate 60 04/11/18 11:06 Respiratory Rate 24 04/11/18 11:29 Blood Pressure 140/80 H 04/11/18 11:06 Pulse Oximetry 93 04/11/18 11:31 Results - Laboratory Findings CBC and BMP: 04/11/18 04:25 04/11/18 04:25 PT/INR, D-dimer D-Dimer 309 NG/ML (0-230) H 04/09/18 11:35 Abnormal lab findings: Abnormal Labs 04/11/18 04/11/18 04:25 04:25 RBC 3.53 L Hgb 9.9 L Hct 31.2 L RDW Std Deviation 53.2 H Lymph % (Auto) 51.9 H BUN 18.0 H Assessment and Plan (1) CAP (community acquired pneumonia) Status: Acute Assessment and plan: CTA reviewed. ground glass density right lung base (posterior-basal RLL) Empiric antibiotics are recommended. currently on Levaquin. Followup CXR. Current Visit: No (2) COPD exacerbation Status: Acute Assessment and plan: I recommend complete PFT Continue bronchodilators with neb albuterol and ipratropium. Most likely she will be a candidate for "triple therapy" with ICS, LAMA, LABA Current Visit: No - Time Spent With Patient Total time spent is greater than 50% in coordination of care (as documented) at patient's floor/unit and/or counseling patient:
[2018-04-10] MEDS: SIMVASTATIN 40 MG TABLET PO SCH (20:11)
[2018-04-10] MEDS: NITROGLYCERIN PATCH REMOVAL TD SCH (20:12)
[2018-04-10] MEDS: FLUoxetine 20 MG CAPSULE PO SCH (20:12)
[2018-04-11] MEDS: NS 1,000 ML IV SCH ×2 (01:18→04:17)
[2018-04-11] MEDS: BENZONATATE 200 MG CAPSULE PO PRN ×3 (01:20→22:18)
[2018-04-11] MEDS: ALBUTEROL/IPRATROPIUM 2.5mg-0.5mg/3ml NEB AEROSOL SCH ×5 (04:05→20:03)
[2018-04-11] MEDS: HYDROCODONE/APAP 5mg/325mg TABLET PO PRN ×3 (04:17→20:40)
[2018-04-11] MEDS: LEVOTHYROXINE 100 MCG TABLET PO SCH (06:00)
[2018-04-11] MEDS: OMEPRAZOLE 20 MG CAPSULE PO SCH (06:00)
[2018-04-11] MEDS: LORATADINE 10 MG TABLET PO SCH (06:01)
[2018-04-11] MEDS: LEVOFLOXACIN 750 MG TABLET PO SCH (06:01)
[2018-04-11] MEDS: ISOSORBIDE MONONITRATE ER 30 MG TABLET PO SCH ×2 (06:01→17:16)
[2018-04-11] MEDS: BUDESONIDE INH.SOLN 0.5mg/2ml NEB AEROSOL SCH ×2 (07:09→20:03)
[2018-04-11] MEDS: NITROGLYCERIN 0.2 MG/HR PATCH TD SCH ×2 (08:50→18:20)
[2018-04-11] MEDS: CLOPIDOGREL 75 MG TABLET PO SCH (08:51)
[2018-04-11] MEDS: GUAIFENESIN/D-METHORPHAN 600mg/30mg TABLET PO SCH ×2 (08:52→20:24)
[2018-04-11] MEDS: LISINOPRIL 10 MG TABLET PO SCH (08:52)
[2018-04-11] MEDS: PredniSONE 20 MG TABLET PO SCH (08:52)
[2018-04-11] MEDS: DICYCLOMINE 20mg TABLET PO SCH ×4 (08:52→20:24)
[2018-04-11] MEDS: ASPIRIN *EC* 81 MG TABLET PO SCH (08:52)
[2018-04-11] MEDS: POLYETHYL GLYCOL 3350 17gm PACKET PO SCH (08:52)
[2018-04-11] MEDS: NICOTINE 14 MG PATCH TD SCH (08:58)
[2018-04-11] MEDS: NICOTINE PATCH REMOVAL TD SCH (08:58)
--- NOTE | 2018-04-11 11:11 | Progress Note ---
- Date 04/11/18 Subjective: F/U: Acute on chronic respiratory failure with hypoxia and hypercapnia, COPD. Pt reports she is doing better. She was weaned off O2 this am. She reports she needs a nebulizer and O2 tubing for home. She will plan to go to [place] on dismissal and is looking for an apt. She continues to have a productive cough. She has ambulated the hallways this am. No BM for a few days. No CP,n/ v/f/c. Objective Vital signs: Temperature 97.5 F 04/11/18 07:03 Pulse Rate 76 04/11/18 08:00 Respiratory Rate 16 04/11/18 07:14 Blood Pressure 133/86 04/11/18 07:03 Pulse Oximetry 99 04/11/18 07:14 Height/Weight/BMI: Weight 71.1 kg - Constitutional Present: no acute distress, well nourished, well developed - Routine HEENT Exam Head: Present: normocephalic, atraumatic - Routine Respiratory Exam Present: decreased breath sounds, wheezes. Absent: CTA bilaterally Comments: coarse expiratory sounds throughout - Routine Cardiovascular Exam Present: RRR - Routine Abdominal Exam Present: soft, non distended, non tender - Routine Extremities Exam Present: no edema, normal capillary refill - Routine Skin Exam Present: dry, warm - Routine Neurological Exam Present: alert, oriented X3 - Routine Lymphatic Exam Lymphatic: Absent: adenopathy - Routine Psychiatric Exam Present: normal affect, cooperative Results - Labs CBC & Chem 7: 04/11/18 04:25 04/11/18 04:25 Assessment and Plan Assessment and Plan: Assessment: Acute on chronic respiratory failure with hypoxia and hypercapnia. SIRS with questionable sepsis - source unidentified though most likely pulmonary given recent pneumonia which appeared to be improving based on serial CXR, leukocytosis, tachypnea, hypoxia. COPD exacerbation. Anemia, chronic. Oxygen dependence - baseline 2-3L. Hypertension Hypothyroidism Questionable history of left breast cancer with lumpectomy at age 20 and ovarian cancer without surgical treatment also at age 20. Coronary artery disease Moderate aortic stenosis Mild mitral regurgitation Moderate pulmonary hypertension Asthma IBS GERD PUD Migraines CVA with prior left hemiparesis with a reported history of about 9 Strokes Depression Anxiety PTSD Bipolar affective disorder Substance abuse Tobacco dependency. Plan: Discussed case with pulm who recommends keeping her another night. They will optimize her meds and develop plan for meds on dismissal. Continue prednisone and breathing txs per pulm recs. Continues on Levaquin for possible pneumonia. Early growth on sputum culture. A.m. labs ordered. - Physician Narrative Narrative: Date: 04/11/18 Time: 1455 S: Pt reports she feels better, sob at baseline. Denies any cp, n/v/d. O: Lungs: decreased breath sounds diffusel Abd: soft, non-tender A/p: Pt doing better but needs maximal medical therapy for her COPD. Pulm is consulted and is working on optimizing pt's meds. Plan on discharging tomorrow. Hospital Course Summary Disclaimer: The visit summary below is not to be considered part of the above Progress Note. Hospital Course: Plan - 04/09/18: Admit patient to observation status under the care of Dr. Parson. Given positive SIRS criteria with questionable sepsis due to recent pneumonia, will obtain blood cultures, serial lactates, procalcitonin for further evaluation. CT chest negative for PE and revealed small consolidation in costophrenic angles as well as consolidation in right middle lobe and lingular segment - unclear if resolving pneumonia or acute. Serial chest x-rays over the past 2 weeks revealed improving pneumonia. Continue DuoNeb treatments QID and PRN as well as Pulmicort BID. Acapella and Mucinex for mucolytic effect. Will try and obtain sputum culture. Respiratory panel was negative. Initiate prednisone 40mg daily for pulmonary inflammation. Patient given Solu- medrol 125mg IV in ED. Will continue home levaquin for empiric pulmonary coverage though may consider broadening treatment given persistent symptoms despite 2 round of Levaquin outpatient. Will discuss with Dr. Parson. Continue oxygen to maintain SAO2 between 90-96%, weaning as able. Monitor closely on telemetry with continuous pulse oximetry. Will continue home medications. Consider pulmonary consult given pulmonary disease. Will recheck labs in AM to monitor blood counts, electrolytes and renal function. Upon discharge, patient's care will be returned to Letty Zepeda APRN, at [facility]. Patient requests to be a DNR. 04/10 Patient appears to be doing better though does continues to have hypercapnia, though likely due to a component of anxiety. Will change to inpatient status given her persistent respiratory failure and COPD exacerbation. Initial lactate was elevated at 4.2 and decreased to 1.2. She remains afebrile. Procalcitonin <0.05. Will continue home Levaquin for empiric antimicrobial coverage of pulmonary pathogens. Blood cultures and sputum culture results pending. Will consults Dr. Pate for additional pulmonary evaluation and treatment recommendations. Appreciate his time and expertise. Continue DuoNeb treatments QID and PRN as well as Pulmicort BID. Acapella and Mucinex for mucolytic effect. Continue prednisone 40mg daily for pulmonary inflammation. Patient given Solu- medrol 125mg IV in ED. Continue oxygen to maintain SAO2 between 90-96%, weaning as able. Monitor closely on telemetry with continuous pulse oximetry. Will recheck labs in AM to monitor blood counts, electrolytes and renal function. 04/11 Discussed case with pulm who recommends keeping her another night. They will optimize her meds and develop plan for meds on dismissal. Continue prednisone and breathing txs per pulm recs. Continues on Levaquin for possible pneumonia. Early growth on sputum culture.
[2018-04-11] MEDS: SALINE FLUSH 10ml SYRINGE IVF PRN (20:23)
[2018-04-11] MEDS: NITROGLYCERIN PATCH REMOVAL TD SCH (20:24)
[2018-04-11] MEDS: FLUoxetine 20 MG CAPSULE PO SCH (20:24)
[2018-04-11] MEDS: SIMVASTATIN 40 MG TABLET PO SCH (20:24)
[2018-04-11] MEDS: ACETAMINOPHEN 325 MG TABLET PO PRN (23:31)
[2018-04-12] MEDS: ALBUTEROL/IPRATROPIUM 2.5mg-0.5mg/3ml NEB AEROSOL SCH ×5 (02:20→15:36)
[2018-04-12] MEDS: HYDROCODONE/APAP 5mg/325mg TABLET PO PRN ×3 (02:40→15:12)
[2018-04-12] MEDS: BENZONATATE 200 MG CAPSULE PO PRN (06:12)
[2018-04-12] MEDS: ISOSORBIDE MONONITRATE ER 30 MG TABLET PO SCH ×2 (06:12→16:44)
[2018-04-12] MEDS: OMEPRAZOLE 20 MG CAPSULE PO SCH (06:12)
[2018-04-12] MEDS: LEVOFLOXACIN 750 MG TABLET PO SCH (06:12)
[2018-04-12] MEDS: LORATADINE 10 MG TABLET PO SCH (06:12)
[2018-04-12] MEDS: LEVOTHYROXINE 100 MCG TABLET PO SCH (06:12)
[2018-04-12] MEDS: ACETAMINOPHEN 325 MG TABLET PO PRN (06:17)
[2018-04-12] MEDS: BUDESONIDE INH.SOLN 0.5mg/2ml NEB AEROSOL SCH (07:49)
[2018-04-12] MEDS: POLYETHYL GLYCOL 3350 17gm PACKET PO SCH (09:01)
[2018-04-12] MEDS: PredniSONE 20 MG TABLET PO SCH (09:03)
[2018-04-12] MEDS: DICYCLOMINE 20mg TABLET PO SCH ×3 (09:03→16:44)
[2018-04-12] MEDS: ASPIRIN *EC* 81 MG TABLET PO SCH (09:04)
[2018-04-12] MEDS: CLOPIDOGREL 75 MG TABLET PO SCH (09:05)
[2018-04-12] MEDS: GUAIFENESIN/D-METHORPHAN 600mg/30mg TABLET PO SCH (09:05)
[2018-04-12] MEDS: NICOTINE 14 MG PATCH TD SCH (09:05)
[2018-04-12] MEDS: LISINOPRIL 10 MG TABLET PO SCH (09:05)
[2018-04-12] MEDS: NICOTINE PATCH REMOVAL TD SCH (09:11)
[2018-04-12] MEDS: NITROGLYCERIN 0.2 MG/HR PATCH TD SCH (09:11)
--- NOTE | 2018-04-12 09:21 | Pulmonology Progress Note ---
Subjective Principal diagnosis: SOB Interval history: Pt sitting up in chair, states her breathing is doing good but still with some SOB. + cough with minimal sputum. Exam Vital signs: Temperature 96.7 F L 04/12/18 07:00 Pulse Rate 64 04/12/18 08:00 Respiratory Rate 18 04/12/18 07:54 Blood Pressure 128/87 04/12/18 07:00 Pulse Oximetry 94 04/12/18 07:54 Inpatient Medications: Generic Name Dose Route Start Last Admin Trade Name Freq PRN Reason Stop Dose Admin Acetaminophen 650 mg 04/09/18 17:16 04/12/18 06:17 Tylenol PO 650 mg Q5H PRN Administration Discomfort Hydrocodone Bitart/Acetaminophen 1 tab 04/09/18 17:16 04/12/18 02:40 Sasser 5/325 PO 1 tab Q6H PRN Administration Pain Albuterol/Ipratropium 3 ml 04/09/18 17:51 Duoneb AEROSOL Q2H PRN Albuterol/Ipratropium 3 ml 04/10/18 16:00 04/12/18 07:49 Duoneb AEROSOL 3 ml Q4HR KARLA Administration Aspirin 81 mg 04/10/18 09:00 04/11/18 08:52 Ecotrin PO 81 mg DAILY KARLA Administration Benzonatate 200 mg 04/09/18 17:16 04/12/18 06:12 Tessalon Perles PO 200 mg TID PRN Administration Cough Bisoprolol Fumarate 1 tab 04/10/18 09:00 04/11/18 08:52 Ziac PO 1 tab DAILY KARLA Administration Budesonide 0.5 mg 04/09/18 19:00 04/12/18 07:49 Pulmicort Inhalation AEROSOL 0.5 mg RTBID KARLA Administration Clopidogrel Bisulfate 75 mg 04/10/18 09:00 04/11/18 08:51 Plavix PO 75 mg DAILY KARLA Administration Dicyclomine HCl 20 mg 04/10/18 08:00 04/11/18 20:24 Bentyl PO 20 mg WMHS KARLA Administration Diphenhydramine HCl 50 mg 04/09/18 17:16 Benadryl PO Q6H PRN Itching Fluoxetine HCl 20 mg 04/09/18 21:00 04/11/18 20:24 Prozac PO 20 mg HS KARLA Administration Guaifenesin/Dextromethorphan 1 tab 04/09/18 21:00 04/11/18 20:24 Mucinex Dm PO 1 tab BID KARLA Administration Isosorbide Mononitrate 30 mg 04/10/18 07:30 04/12/18 06:12 Imdur PO 30 mg ACBID KARLA Administration Levofloxacin 750 mg 04/10/18 06:30 04/12/18 06:12 Levaquin PO 04/12/18 23:59 750 mg ACB KARLA Administration Levothyroxine Sodium 100 mcg 04/10/18 06:30 04/12/18 06:12 Synthroid PO 100 mcg ACB KARLA Administration Lisinopril 10 mg 04/10/18 09:00 04/11/18 08:52 Prinivil PO 10 mg DAILY KARLA Administration Loratadine 10 mg 04/10/18 09:58 04/12/18 06:12 Claritin PO 10 mg ACB KARLA Administration Magnesium Hydroxide 30 ml 04/09/18 17:16 04/11/18 22:52 Mom PO 30 ml PRN PRN Administration Constipation Nicotine 14 mg 04/10/18 10:00 04/11/18 08:58 Nicoderm TD Not Given DAILY KARLA Nicotine 1 removal 04/11/18 09:00 04/11/18 08:58 Nicotine Patch Removal TD Not Given DAILY KARLA Nitroglycerin 1 patch 04/10/18 09:00 04/11/18 18:20 Nitro-Dur 0.2 Mg/Hr TD 1 patch DAILY KARLA Administration Nitroglycerin 0.4 mg 04/09/18 17:16 Nitrostat SL Q5MIN3 PRN Chest pain Nitroglycerin 1 removal 04/10/18 21:00 04/11/18 20:24 Nitro-Dur Patch Removal TD 1 removal 2100 KARLA Administration Omeprazole 20 mg 04/10/18 07:30 04/12/18 06:12 Prilosec PO 20 mg ACB KARLA Administration Ondansetron HCl 4 mg 04/09/18 17:16 Zofran IVP Q6H PRN Nausea &/or vomiting Polyethylene Glycol 17 gm 04/10/18 09:00 04/11/18 08:52 Miralax PO 17 gm DAILY KARLA Administration Prednisone 40 mg 04/10/18 08:00 04/11/18 08:52 Deltasone 20 Mg PO 40 mg WB KARLA Administration Promethazine HCl/Dextromethorphan 5 ml 04/09/18 17:16 04/10/18 20:11 Phenergan Dm Syrup PO 5 ml HS PRN Administration Cough Senna/Docusate Sodium 1 tab 04/09/18 17:16 04/10/18 16:31 Senna Plus Tablet PO 1 tab BID PRN Administration Constipation Simvastatin 40 mg 04/09/18 21:00 04/11/18 20:24 Zocor PO 40 mg HS KARLA Administration Sodium Chloride 10 - 80 ml 04/09/18 11:58 04/11/18 20:23 Iv Flush IVF 10 ml PRN PRN Administration Flushing Discontinued Medications Generic Name Dose Route Start Last Admin Trade Name Freq PRN Reason Stop Dose Admin Albuterol/Ipratropium 3 ml 04/09/18 12:01 04/09/18 12:30 Duoneb AEROSOL 04/09/18 12:02 3 ml O ONE Administration Albuterol/Ipratropium 3 ml 04/09/18 15:38 04/09/18 15:40 Duoneb AEROSOL 04/09/18 15:39 3 ml O ONE Administration Albuterol/Ipratropium 3 ml 04/09/18 17:16 Duoneb AEROSOL RTQID PRN Albuterol/Ipratropium 3 ml 04/09/18 19:00 04/10/18 15:03 Duoneb AEROSOL 3 ml RTQID KARLA Administration Dicyclomine HCl 20 mg 04/09/18 21:00 04/09/18 23:27 Bentyl PO 20 mg QID KARLA Administration Diphenhydramine HCl 25 mg 04/09/18 13:21 04/09/18 13:35 Benadryl IVP 04/09/18 13:22 25 mg O ONE Administration Sodium Chloride 1,000 mls @ 100 mls/hr 04/09/18 17:16 04/11/18 09:22 Normal Saline IV Infused .Q10H KARLA Infusion Sodium Chloride 1,000 mls @ 999.9 mls/hr 04/09/18 23:14 04/10/18 01:05 Normal Saline IV 04/10/18 00:13 Infused .Q1H ONE Infusion Isosorbide Mononitrate 30 mg 04/09/18 21:00 04/09/18 23:32 Imdur PO 30 mg BID KARLA Administration Methylprednisolone Sodium Succinate 125 mg 04/09/18 11:59 04/09/18 12:18 Solu-Medrol IVP 04/09/18 12:00 125 mg O ONE Administration - Constitutional no acute distress, average body habitus, cooperative - Routine HEENT Exam Head: Present: normocephalic, atraumatic Eye: Present: EOMI, PERRL ENT: Present: mucous membranes moist - Routine Neck Exam Present: supple, full ROM, trachea midline - Routine Respiratory Exam Present: decreased breath sounds, rhonchi. Absent: accessory muscle use, patient mechanically ventilated - Routine Cardiovascular Exam Present: RRR, S1, S2, no murmur - Routine Abdominal Exam Present: soft, normoactive bowel sounds - Routine Extremities Exam Present: no edema, non tender, full ROM. Absent: cyanosis, clubbing - Routine Back/Spine/Pelvis Exam Back/Spine: Present: full ROM - Routine Skin Exam Present: intact, dry - Routine Neurological Exam Present: alert, oriented X3, CN II-XII intact - Routine Psychiatric Exam Present: normal affect, normal thought process Results - Laboratory Findings Laboratory: Laboratory Results - last 48 hr 04/11/18 04/11/18 04/12/18 04:25 04:25 04:09 WBC 9.2 D 8.0 RBC 3.53 L 3.62 L Hgb 9.9 L 10.2 L Hct 31.2 L 31.7 L MCV 88.4 87.6 MCH 28.0 28.2 MCHC 31.7 32.2 RDW Std Deviation 53.2 H 53.3 H Plt Count 235 247 MPV 9.8 10.0 Immature Gran % (Auto) 0.2 0.2 Neut % (Auto) 42.4 43.0 Lymph % (Auto) 51.9 H 51.6 H Hayes % (Auto) 5.4 5.1 Eos % (Auto) 0.0 0.0 Baso % (Auto) 0.1 0.1 Neut # (Auto) 3.9 3.4 Lymph # (Auto) 4.8 4.1 Hayes # (Auto) 0.5 0.4 Eos # (Auto) 0.0 0.0 Baso # (Auto) 0.0 0.0 Abs Immat Gran (auto) 0.02 0.02 Turbidity < 20 Sodium 138 Potassium 4.0 Chloride 104 Carbon Dioxide 27 Anion Gap 7 BUN 18.0 H Creatinine 0.7 GFR Calculation 85 BUN/Creatinine Ratio 26 Glucose 97 Calculated Osmolality 268 Calcium 8.7 Icterus Index < 2 Specimen Hemolysis < 15 04/12/18 04:09 WBC RBC Hgb Hct MCV MCH MCHC RDW Std Deviation Plt Count MPV Immature Gran % (Auto) Neut % (Auto) Lymph % (Auto) Hayes % (Auto) Eos % (Auto) Baso % (Auto) Neut # (Auto) Lymph # (Auto) Hayes # (Auto) Eos # (Auto) Baso # (Auto) Abs Immat Gran (auto) Turbidity < 20 Sodium 138 Potassium 3.7 Chloride 102 Carbon Dioxide 29 Anion Gap 7 BUN 19.0 H Creatinine 0.7 GFR Calculation 85 BUN/Creatinine Ratio 27 H Glucose 97 Calculated Osmolality 268 Calcium 9.0 Icterus Index < 2 Specimen Hemolysis < 15 Assessment and Plan - Assessment and Plan Acute on Chronic Hypoxic Respiratory Failure COPD exacerbation Pneumonia Tobaccoism Plan: Pt currently on RA since this am, could check ExOx to assess O2 needs prior to dismissal. On BT's with pulmicort BID, AlA q4hr and prednisone 40mg daily. On levaquin daily, sputum with moderate WBC, few GPC, few GNR, but cx normal efrain. WBC normal, lactate 4.2>1.2. RVP NTD, BC's NTD. Would keep on current treatments . Encourage use of Acapella and IS, follow CXR. Likely needs more then spiriva at home and also needs to sustain from smoking. Once discharged will need a f/u OP with PFT/CXR in 3-4 weks, my office will call the patient. Recommend spiriva 18mcg 1 puff daily, symbicort 160/4.5 2 puffs BID, A/A QID prn and total levaquin for 10 days. She will need to wean off her prednisone by 10mg every 3 days till off as OP. - Time Spent With Patient Total time spent is greater than 50% in coordination of care (as documented) at patient's floor/unit and/or counseling patient: less than 15 minutes
--- NOTE | 2018-04-12 10:28 | Discharge Summary ---
Discharge Information Date of admission: 04/10/18 09:45 Anticipated date of discharge: 04/12/18 Attending Physician: Milena Parson MD Primary care physician: Letty Zepeda APRN Consults: Consulting Provider: Scott Pate Acute on chronic respiratory failure with hypoxia and hypercapnia. SIRS with questionable sepsis - source unidentified though most likely pulmonary given recent pneumonia which appeared to be improving based on serial CXR, leukocytosis, tachypnea, hypoxia. COPD exacerbation. Anemia, chronic. Oxygen dependence - baseline 2-3L. Hypertension Hypothyroidism Questionable history of left breast cancer with lumpectomy at age 20 and ovarian cancer without surgical treatment also at age 20. Coronary artery disease Moderate aortic stenosis Mild mitral regurgitation Moderate pulmonary hypertension Asthma IBS GERD PUD Migraines CVA with prior left hemiparesis with a reported history of about 9 Strokes Depression Anxiety PTSD Bipolar affective disorder Substance abuse Tobacco dependency. - Laboratory Labs: Laboratory Tests 04/12/18 04/12/18 04:09 04:09 WBC 8.0 RBC 3.62 L Hgb 10.2 L Hct 31.7 L MCV 87.6 MCH 28.2 MCHC 32.2 Plt Count 247 Sodium 138 Potassium 3.7 Chloride 102 Carbon Dioxide 29 BUN 19.0 H Creatinine 0.7 Glucose 97 Calcium 9.0 - Radiology Radiology: Date of Exam: 04/09/18 Indication: dyspnea, PROCEDURE: CT angio pulm emboli: Pulmonary arteries: Exam is gastric to the subsegmental pulmonary arterial level. No filling defects identified to suggest a pulmonary embolus. Other findings: No pneumothorax. Lingular and right middle lobe scarring. Mild airspace disease in the right lower lobe. No pleural effusion. The central airways are patent. No axillary adenopathy. Calcified mediastinal granulomas. Heart is mildly enlarged with trace pericardial effusion. The upper abdomen shows no acute findings. Impression: 1. No pulmonary embolus. 2. Right lower lobe airspace disease could represent atelectasis or developing pneumonia. History of Present Illness HPI: Sulema Suarez is a 63-year-old female patient of Letty Zepeda APRN, who [place] [facility] [place] evaluation of increased dyspnea. She was recently admitted [place] [facility] [place]23[place] for acute dyspnea and treated for pneumonia with Levaquin. Since her discharge, she has been seen at [facility] [place] 6 times as well as multiple visits to her PCP primarily for dyspnea as well as chest pain and abdominal pain. While hospitalized, she was started on Levaquin and discharged home on Levaquin which she reports she completed. Due to her persistent symptoms, she was started on a second round of Levaquin on 04/07 by the ED. Despite treatment, she continued to have a cough which she reports is occasionally productive and increased dyspnea. She denies any known fevers, chills, abdominal pain, nausea, vomiting or dysuria. She does report chest tightness and pain with coughing. Following her evaluation in the ED on 04/07, she was taken to snf for violation of parole, where she currently resides and is accompanied today by an officer. Upon arrival to the ED today, she is noted to be afebrile and tachypneic. She reports that she has been on 2.5L oxygen at home since September 2017 following a bout of H1N1 and was noted to be hypoxic on room air at 88% while in the ED. Labs were obtained and revealed leukocytosis (WBC 12.3) and mild anemia (Hgb 11.7). CMP was unremarkable. Troponin was <0.012. D-dimer was noted to be slightly elevated at [address] chest revealed pulmonary air space consolidation in the right middle and lingular spaces which may represent pneumonia, atelectasis or a combination of both and no PE. Serial chest x-rays over the past 2 weeks revealed improving lower lobe pneumonias. She received DuoNeb treatments x 2 with Solu-Medrol 125mg IV x 1 dose and Benadryl 25mg x [address] Parson was consulted and she was accepted into observation status for further evaluation and treatment. Objective Vital signs: Temperature 96.7 F L 04/12/18 07:00 Pulse Rate 64 04/12/18 08:00 Respiratory Rate 18 04/12/18 07:54 Blood Pressure 128/87 04/12/18 07:00 Pulse Oximetry 94 04/12/18 07:54 Height/Weight/BMI: Weight 69.5 kg - Constitutional Present: no acute distress, well nourished, well developed - Routine HEENT Exam Head: Present: normocephalic, atraumatic - Routine Respiratory Exam Present: CTA bilaterally (air movement much improved. Has some coarse upper respiratory sounds, but not obvious wheezing at this time.). Absent: wheezes - Routine Cardiovascular Exam Present: RRR, no murmur - Routine Abdominal Exam Present: soft, non distended, non tender - Routine Extremities Exam Present: no edema, normal capillary refill - Routine Skin Exam Present: dry, warm - Routine Neurological Exam Present: alert, oriented X3 - Routine Lymphatic Exam Lymphatic: Absent: adenopathy - Routine Psychiatric Exam Present: normal affect, cooperative Hospital Course This is a general summary of the patient's hospital course. For more details refer to the complete medical record. Hospital course: 04/09/18: Admit patient to observation status under the care of Dr. Parson. Given positive SIRS criteria with questionable sepsis due to recent pneumonia, will obtain blood cultures, serial lactates, procalcitonin for further evaluation. CT chest negative for PE and revealed small consolidation in costophrenic angles as well as consolidation in right middle lobe and lingular segment - unclear if resolving pneumonia or acute. Serial chest x-rays over the past 2 weeks revealed improving pneumonia. Continue DuoNeb treatments QID and PRN as well as Pulmicort BID. Acapella and Mucinex for mucolytic effect. Will try and obtain sputum culture. Respiratory panel was negative. Initiate prednisone 40mg daily for pulmonary inflammation. Patient given Solu- medrol 125mg IV in ED. Will continue home levaquin for empiric pulmonary coverage though may consider broadening treatment given persistent symptoms despite 2 round of Levaquin outpatient. Will discuss with Dr. Parson. Continue oxygen to maintain SAO2 between 90-96%, weaning as able. Monitor closely on telemetry with continuous pulse oximetry. Will continue home medications. Consider pulmonary consult given pulmonary disease. Will recheck labs in AM to monitor blood counts, electrolytes and renal function. Upon discharge, patient's care will be returned to Letty Zepeda APRN, at [facility]. Patient requests to be a DNR. 04/10 Patient appears to be doing better though does continues to have hypercapnia, though likely due to a component of anxiety. Will change to inpatient status given her persistent respiratory failure and COPD exacerbation. Initial lactate was elevated at 4.2 and decreased to 1.2. She remains afebrile. Procalcitonin <0.05. Will continue home Levaquin for empiric antimicrobial coverage of pulmonary pathogens. Blood cultures and sputum culture results pending. Will consults Dr. Pate for additional pulmonary evaluation and treatment recommendations. Appreciate his time and expertise. Continue DuoNeb treatments QID and PRN as well as Pulmicort BID. Acapella and Mucinex for mucolytic effect. Continue prednisone 40mg daily for pulmonary inflammation. Patient given Solu- medrol 125mg IV in ED. Continue oxygen to maintain SAO2 between 90-96%, weaning as able. Monitor closely on telemetry with continuous pulse oximetry. Will recheck labs in AM to monitor blood counts, electrolytes and renal function. 04/11 Discussed case with pulm who recommends keeping her another night. They will optimize her meds and develop plan for meds on dismissal. Continue prednisone and breathing txs per pulm recs. Continues on Levaquin for possible pneumonia. 04/12 Patient is on room air. Stable for DC. Pulm recommends Duoneb breathing txs QID, Spiriva and Symbicort. F-u with Dr. Pate in 3-4 weeks. F-u with Letty Zepeda in 1-2 weeks. Quit smoking. Normal respiratory efrain on sputum culture. Wean prednisone by 10mg q 3 days. Complete total of 10 days of Levaquin per pulm. (Last day of atbx April 16) Time spent with patient: discharge greater than 30 minutes Resuscitation Status: Do Not Resuscitate Discharge Plan - Discharge Disposition Discharge Date: 04/12/18 Disposition: 01 Discharged Home, Self-Care *Condition: Stable Reason For Visit (Visit label in EMR): acute respiratory distress - Discharge Medications *Discharge Medications: New Albuterol Neb (0.083%) [Proventil Neb (0.083%)] 2.5 mg AEROSOL O #120 vial Budesonide/Formoterol Fumarate [Symbicort 160-4.5 Mcg Inhaler] 2 puff INH BID #1 inhaler Ipratropium [place] 1 dose AEROSOL QID 30 Days #1 bottle Nicotine Patch [Nicoderm] 14 mg TD DAILY #30 patch PredniSONE [Deltasone 20 mg] 10 mg PO WB #30 tab Loratadine [Claritin] 10 mg PO ACB tab Continue Levothyroxine Tab [Synthroid] 100 mcg PO ACB Nitroglycerin Patch [Nitro-Dur 0.2 mg/Hr] 1 patch TD DAILY Isosorbide Mononitrate ER [Imdur] 30 mg PO BID Simvastatin [Zocor] 40 mg PO HS Bisoprolol/Hctz 10/6.25 [Ziac] 1 tab PO DAILY FLUoxetine [Prozac] 20 mg PO HS Omeprazole 40 mg PO DAILY Lisinopril [Prinivil] 10 mg PO DAILY Nitroglycerin 0.4 mg PO Q5MIN3 PRN PRN Reason: Chest Pain Clopidogrel [Plavix] 75 mg PO DAILY DiphenhydrAMINE [Benadryl] 50 mg PO Q6H PRN cap PRN Reason: Itching Guaifenesin/Dm [Mucinex Dm] 1 tab PO BID tab Benzonatate [Tessalon Perles] 200 mg PO TID PRN #30 cap PRN Reason: Cough Promethazine + Dm Liq [Phenergan Dm Syrup] 5 ml PO HS PRN #2 oz PRN Reason: Cough Dicyclomine [Bentyl] 20 mg PO QID Aspirin *EC* [Ecotrin] 81 mg PO DAILY tab Albuterol Sulfate [Proair Hfa] 2 puff INH Q4H PRN PRN Reason: Shortness Of Air Tiotropium Handihaler [Spiriva] 1 cap INH DAILY levoFLOXacin [Levaquin] 750 mg PO ACB #4 tab Discontinued Albuterol/Ipratropium [Duoneb] 1 unit AEROSOL Q4H #100 vial - Discharge Packet/Instructions *Diet: cardiac diet *Activity: as tolerated *Pain Management/Treatment: n/a *Wound Care: n/a *Expected Signs/Symptoms: you will continue to have cough and shortness of breath with your chronic lung condition *Notify Physician if: you develop fever or your symptoms signficantly worsen *During Business Hours Contact: Letty Zepeda's office *After Business Hours Contact: [facility] and follow after hours instructions *Pending Lab/Results: No Pending Lab - Referrals/Follow Up *Referrals/Follow Up: Letty Zepeda APRN [Primary Care Provider] - 04/17/18 3:00 am - Patient Handouts - Dismissal Complete Discharge Instructions are:: Complete Physician Narrative - Narrative Physician: other (Dr Parson) Attestation Narrative: Date: 04/12/18 Time: 1604 Pt was admitted for respiratory distress and it was unclear how much of it was acute as most of it was likely chronic. Pulm was consulted and they made recs for inhalers and abx/steroid treatment. Pt did well and was even off O2 at discharge. Pt's lung sounds were more clear without wheezing on discharge. Pt will follow up with pulm as outpatient.
[2018-04-12] MEDS ORDERED: BISACODYL 10 MG SUPPOSITORY RECTALLY ONE (12:04)
[2018-04-12] MEDS ORDERED: FLEET PHOSPHO - SODA ENEMA 133ml PR PRN (13:45)
[2018-04-12 15:02] VITALS: BP 137/89; TEMP 96.6
[2018-04-12 15:49] VITALS: RESP 20; O2SAT 96
[2018-04-12 16:12] VITALS: PULSE 65
== END 2018-04-12 17:40 | disposition home health service (06) | DRG 190 ==
LOC: EDHOLD 11:11 → ED 11:11 → MED 16:55
PROVIDERS: ADMIT Internal Medicine; ATTEND Internal Medicine